=== PATIENT | male | born 1925 | race Caucasian/White ===

== ENCOUNTER 2016-08-03 12:26 | Inpatient (IN) | payer MEDICARE ==
[~2016-08-03] VITALS: Ht 180.3 cm; Wt 45.4 kg
[~2016-08-03 12:26] MED LIST: ACET325T9 PO; AMLO10TA2 PO; ASPI-482 PO; ASPI325T4 PO; ATOR10TA PO; BUME1TAB PO; DILT180C29 PO; FURO-68 PO; GUAI400T27 PO; HYDR-2666 PO; HYDR-2868 PO; IPRA3AMP NEB; LEVO100T5 PO; LISI-334 PO; MAGN2400 PO; METO100T11 PO; NIFE90TA9 PO; POTA20TA12 PO; POTA20TA4 PO; POTA20TA82 PO; PRED-220 PO; SIMV20TA3 PO; [UNRECOGNIZED DRUG - CODE] PO
[2016-08-03] MEDS ORDERED: IV NORMAL SALINE 1000ML BAG 1,000 ML IV ONE (13:15)
--- NOTE | 2016-08-03 13:15 | RAD ---
CT of the head without contrast, 08/03/2016: History: Altered mental status Comparison is made to a study from 09/17/2015. There is moderate cerebral atrophy. There is encephalomalacia in the left temporoparietal region compatible with an old infarct. There are extensive patchy bilateral deep white matter lucencies compatible with chronic ischemic change. The ventricles are within normal limits in size. There is no shift of the midline structures. There is no evidence of acute intracranial hemorrhage or mass effect. There is a small amount of fluid or mucosal thickening posteriorly in the left sphenoid sinus. IMPRESSION: 1. Chronic findings as described above. 2. No acute intracranial abnormality is detected. PQRS Compliance Statement: One or more of the following individualized dose reduction techniques were utilized for this examination: 1. Automated exposure control 2. Adjustment of the mA and/or kV according to patient size 3. Use of iterative reconstruction technique
--- NOTE | 2016-08-03 13:20 | RAD ---
AP portable chest radiograph 08/03/2016 Clinical History: Shortness of breath. History of pleural effusion. 2 AP portable erect digital radiograph of the chest was obtained. Comparison study is dated 02/27/2016. The cardiac silhouette is mildly enlarged. Atherosclerotic calcification of the thoracic aorta is seen. The thoracic aorta is mildly tortuous. There is a small to moderate-sized right pleural effusion. A right perihilar infiltrate is seen. No pneumothorax is noted. There is diffuse osteopenia of the visualized bony structures. Degenerative changes are seen involving the thoracic spine. Impression: Small to moderate sized right pleural effusion with right perihilar infiltrate. I
[2016-08-03] MEDS ORDERED: PIPERACILLIN/TAZOBACTAM 3.375 GM in IV NORMAL SALINE 50ML 50 ML IV ONE (14:00)
[2016-08-03] MEDS ORDERED: ONDANSETRON PF 4 MG/2 ML VIAL. IV PRN (14:00)
--- NOTE | 2016-08-03 14:06 | PHYS DOC ---
Past Medical History Past Medical History: Constipation, CVA, Dementia, High Cholesterol, Hypertension, Hypothyroid, Renal Disease, Other Additional Past Medical Histor: recent sepsis (09/26/15) Past Surgical History: No Surgical History Alcohol Use: None Drug Use: None Adult General Chief Complaint Chief Complaint: ABNORMAL LABS HPI HPI 89-year-old male who presents with 3-4 days of decreased level consciousness and generalized illness as well as failure to thrive. Patient had laboratory workup that showed a elevated serum sodium of 165. Patient is currently unable to answer my questions appropriately and appears very ill. He has paperwork with him that indicates he is a DNR at this time. He denies any specific complaints. He is mildly toxic in appearance but in no acute distress. He is afebrile. Review of Systems Review of Systems Constitutional: Denies fever or chills [] Eyes: Denies change in visual acuity, redness, or eye pain [] HENT: Denies nasal congestion or sore throat [] Respiratory: Denies cough or shortness of breath [] Cardiovascular: No additional information not addressed in HPI [] GI: Denies abdominal pain, nausea, vomiting, bloody stools or diarrhea [] : Denies dysuria or hematuria [] Musculoskeletal: Denies back pain or joint pain [] Integument: Denies rash or skin lesions [] Neurologic: Denies headache, focal weakness or sensory changes [] Endocrine: Denies polyuria or polydipsia [] Current Medications Current Medications Allergies Allergies Allergies Coded Allergies Type Severity Reaction Last Updated Verified No Known Drug Allergies 09/19/15 No Physical Exam Physical Exam Constitutional: Cachetic, no acute distress, mildly toxic appearance. [] HENT: Normocephalic, atraumatic, bilateral external ears normal, oropharynx dry , no oral exudates, nose normal, . [] Eyes: PERRLA, EOMI, conjunctiva normal, no discharge. [] Neck: Normal range of motion, no tenderness, supple, no stridor. [] Cardiovascular:Heart rate regular rhythm, no murmur [] Lungs & Thorax: Diminished on the right, no significant respiratory distress [] Abdomen: Bowel sounds normal, soft, no tenderness, no masses, no pulsatile masses. [] Skin: Warm, dry, no erythema, no rash, poor skin turgor. [] Back: No tenderness, no CVA tenderness. [] Extremities: No tenderness, no cyanosis, no clubbing, ROM intact, no edema. [] Neurologic: Alert and oriented X 1 (person), no focal deficits Current Patient Data Vital Signs EKG EKG EKG as interpreted by me shows an irregular rhythm with a rate of 81 bpm. There are no acute ST findings. There are no obvious signs of ischemia on this EKG. QTc interval slightly prolonged at 505 ms. Radiology/Procedures Radiology/Procedures CT of the head without contrast, 08/03/2016: History: Altered mental status Comparison is made to a study from 09/17/2015. There is moderate cerebral atrophy. There is encephalomalacia in the left temporoparietal region compatible with an old infarct. There are extensive patchy bilateral deep white matter lucencies compatible with chronic ischemic change. The ventricles are within normal limits in size. There is no shift of the midline structures. There is no evidence of acute intracranial hemorrhage or mass effect. There is a small amount of fluid or mucosal thickening posteriorly in the left sphenoid sinus. IMPRESSION: 1. Chronic findings as described above. 2. No acute intracranial abnormality is detected. PQRS Compliance Statement: One or more of the following individualized dose reduction techniques were utilized for this examination: 1. Automated exposure control 2. Adjustment of the mA and/or kV according to patient size 3. Use of iterative reconstruction technique AP portable chest radiograph 08/03/2016 Clinical History: Shortness of breath. History of pleural effusion. 2 AP portable erect digital radiograph of the chest was obtained. Comparison study is dated 02/27/2016. The cardiac silhouette is mildly enlarged. Atherosclerotic calcification of the thoracic aorta is seen. The thoracic aorta is mildly tortuous. There is a small to moderate-sized right pleural effusion. A right perihilar infiltrate is seen. No pneumothorax is noted. There is diffuse osteopenia of the visualized bony structures. Degenerative changes are seen involving the thoracic spine. Impression: Small to moderate sized right pleural effusion with right perihilar infiltrate. Course & Med Decision Making Course & Med Decision Making Pertinent Labs and Imaging studies reviewed. (See chart for details) This 89-year-old male has significant dehydration, failure to thrive and is being applied for an ongoing hypernatremia. He has a large right-sided pleural effusion with perihilar infiltrate for which I will order up antibiotics. Blood cultures and lactate will be obtained. His code status was confirmed with daughter at bedside as DNR. His vital signs have remained normal while in the department. At this time laboratory workup is pending. I discussed the need to admit the patient with the hospitalist, Dr. Guzman, who agreed to accept admission for his ongoing dehydration and failure to thrive. Nephrology consult was also placed. Attempts at antibiotics that are non-nephrotoxic were made. His urinalysis is positive for infection. His serum sodium is confirmed to be elevated at 166. He was admitted without incident. Dragon Disclaimer Dragon Disclaimer This electronic medical record was generated, in whole or in part, using a voice recognition dictation system. Departure Departure Impression: Primary Impression: Hypernatremia Additional Impressions: Severe dehydration Failure to thrive Pleural effusion Disposition: ADMITTED INPATIENT Admitting Physician: Radames Guzman Condition: STABLE Referrals: RADAMES GUZMAN MD (PCP) Problem Qualifiers ADITYA LANG DO Aug 03, 2016 14:06
[2016-08-03 14:30] LABS: BASO # 0.1 x10^3/uL (0.0-0.2); BASO % 1 % (0-3); EOS % 5 % (0-3); HEMATOCRIT 48.7 % (39.0-53.0); HEMOGLOBIN 14.5 g/dL (13.0-17.5); LYMPH # 0.9 x10^3/uL (1.0-4.8); LYMPH % 13 % (24-48); MEAN CORPUSCULAR HEMOGLOBIN 29 pg (25-35); MEAN CORPUSCULAR HGB CONC 30 g/dL (31-37); MEAN CORPUSCULAR VOLUME 96 fL (79-100); MONO % 5 % (0-9); NEUT % 76 % (31-73); PLATELET COUNT 138 x10^3/uL (140-400); RED BLOOD COUNT 5.06 x10^6/uL (4.30-5.70); RED CELL DISTRIBUTION WIDTH 22.4 % (11.5-14.5)
[2016-08-03 14:36] LABS: ALBUMIN 2.3 g/dL (3.4-5.0); ALBUMIN/GLOBULIN RATIO 0.5 (1.0-1.7); CREATININE 2.2 mg/dL (0.7-1.3); GFR 28.3; POTASSIUM 3.9 mmol/L (3.5-5.1); TOTAL BILIRUBIN 1.7 mg/dL (0.2-1.0); TOTAL PROTEIN 7.3 g/dL (6.4-8.2)
[2016-08-03 14:36] LABS: BILIRUBIN,URINE MODERATE (NEG); GLUCOSE,URINE NEGATIVE (NEG); NITRITE,URINE NEGATIVE (NEG); PH,URINE 5.5; PROTEIN,URINE 100 mg/dL (NEG-TRACE)
[2016-08-03 15:00] LABS: BACTERIA,URINE MODERATE /HPF (0-FEW); WBC,URINE TNTC /HPF (0-4); YEAST,URINE PRESENT /HPF
[2016-08-03] MEDS ORDERED: CEFEPIME HCL 2 GM in IV NORMAL SALINE 100ML 100 ML IV ONE (15:00)
[2016-08-03] MEDS: IV NORMAL SALINE 1000ML BAG 1,000 ML IV SCH ×2 (15:56→20:49)
--- NOTE | 2016-08-03 15:56 | ACF ---
Admission Forms Criteria HYPONATREMIA; HYPERNATREMIA; HYPOKALEMIA; HYPERKALEMIA; HYPOCALCEMIA; HYPERCALCEMIA Clinical Indications for Inpatient Care (Place 'X' for any and all applicable criteria): Ongoing inpatient care may be indicated for ANY ONE of the following [G](1)(2)(3 )(5): [ ]I. Hyponatremia with ANY ONE of the following: [ ]a) Sodium less than 130 mEq/L (mmol/L) (new) (6)(22) [ ]b) Sodium less than 135 mEq/L (mmol/L) with ANY ONE of the following: [ ]i) Severe medical etiology requiring inpatient management (eg, heart failure, hypovolemia) [ ]ii) Altered mental status [ ]iii) Seizures [X]II. Hypernatremia with ANY ONE of the following: [X]a) Sodium greater than 155 mEq/L (mmol/L) [ ]b) Sodium greater than 150 mEq/L (mmol/L) with ANY ONE of the following: [ ] i) Altered mental status [ ]ii) Seizures [ ]iii) Severe medical etiology (eg, hypovolemia, diabetes insipidus) [ ]iv) Severe weakness [ ]v) Severe medical etiology (eg, hemolysis, infection, drug overdose) [ ]III. Hypokalemia with ANY ONE of the following: [ ]a) Potassium less than 2.5 mEq/L (mmol/L) despite outpatient and emergency treatment [ ]b) Potassium less than 3.0 mEq/L (mmol/L) with ANY ONE of the following: [ ]i) Weakness [ ]ii) Cardiac abnormality (eg, arrhythmia, conduction disturbance) [ ]iii) Cardiac ischemia [ ]iv) Ileus [ ]v) Ongoing medical cause requiring inpatient management. ( e.g., acute renal wasting, SIADH) [ ]vi) Other severe symptoms [ ] IV. Hyperkalemia with ANY ONE of the following: [ ]a) Potassium greater than 6.5 mEq/L (mmol/L) [ ]b) Potassium greater than 5 mEq/L (mmol/L) with ANY ONE of the following: [ ]i) Severe ECG findings [H] [ ]ii) Acute worsening of renal failure (creatinine greater than 2.5 mg/dL (221 micromoles/L) or significant elevation for age and size) [ ] V. Hypocalcemia with ANY ONE of the following: [ ]a) Calcium less than 7 mg/dL (1.75 mmol/L) despite outpatient and emergency treatment(19) [ ]b) Calcium less than 8 mg/dL (2 mmol/L) with significant symptoms or findings; examples include: [ ]i) Cardiac abnormality (eg, arrhythmia or conduction disturbance) [ ]ii) Altered mental status [ ]iii) Seizures [ ]iv) Breathing difficulty [ ]v) Muscle spasms [ ]. Hypercalcemia with ANY ONE of the following: [ ]a) Calcium greater than 14 mg/dL (3.5 mmol/L) [ ]b) Calcium greater than 12 mg/dL (3 mmol/L) with ANY ONE of the following: [ ]i) Significant dehydration or hypovolemia as indicated by ANY ONE of the following(2): [ ]1. Clinically significant dehydration as indicated by ANY ONE of the following: [ ]A. Acute loss of weight from baseline (5% of body weight in adults, 9% in pediatric patients) [ ]B. Hemodynamic instability [ ]C. Acute renal failure [ ]D. Serum sodium greater than 150 mEq/L (mmol/L) [ ]2) Dehydration that is persistent indicated by ALL of the following: [ ]A. Oral rehydration therapy not tolerated or insufficient to adequately correct dehydration [ ]B. Appropriate intravenous treatment (eg, fluids ) does not readily correct dehydration ie, after 12 to 24 hours of treatment) [ ]ii) Significant symptoms or findings; examples include: [ ]1) Altered mental status [ ]2) Cardiac abnormality (eg, arrhythmia, conduction disturbance) [ ]3) Cardiac abnormality (eg, arrhythmia, conduction disturbance) The original [facility] content created by [facility] has been revised. The portions of the content which have been revised are identified through the use of italic text or in bold, and [facility] has neither reviewed nor approved the modified material. All other unmodified content is copyright [facility] Please see references footnoted in the original [facility] edition 2016 Admission Criteria Met?: Yes SUSHMA FORD Aug 03, 2016 15:56
[2016-08-03 16:40] VITALS: BP 148/104
[2016-08-03] MEDS ORDERED: IPRA3AMP NEB (18:36)
[2016-08-03] MEDS ORDERED: LEVO150T PO (18:37)
[2016-08-03] MEDS ORDERED: NA P133E2 RC (18:37)
[2016-08-03] MEDS ORDERED: DICL100G7 TP (18:38)
[2016-08-03] MEDS ORDERED: ONDA4TAB7 PO (18:38)
[2016-08-03] MEDS ORDERED: ACET160S RC (18:39)
[2016-08-03] MEDS ORDERED: CARV12.5 PO (18:40)
[2016-08-03] MEDS ORDERED: BISA-42 RC (18:40)
[2016-08-03 19:59] VITALS: BP 138/92
[2016-08-03 20:05] LABS: MICROCYTOSIS SLIGHT; PLT ESTIMATE ADEQUATE (ADEQUATE)
[2016-08-04] VITALS (7 sets, daily range): BP systolic 116–138; BP diastolic 72–88
[2016-08-04 03:41] LABS: BASO # 0.1 x10^3/uL (0.0-0.2); BASO % 1 % (0-3); EOS % 3 % (0-3); HEMATOCRIT 42.4 % (39.0-53.0); HEMOGLOBIN 13.1 g/dL (13.0-17.5); LYMPH # 0.6 x10^3/uL (1.0-4.8); LYMPH % 9 % (24-48); MEAN CORPUSCULAR HEMOGLOBIN 29 pg (25-35); MEAN CORPUSCULAR HGB CONC 31 g/dL (31-37); MEAN CORPUSCULAR VOLUME 94 fL (79-100); MONO % 4 % (0-9); NEUT % 83 % (31-73); PLATELET COUNT 120 x10^3/uL (140-400); RED BLOOD COUNT 4.51 x10^6/uL (4.30-5.70); RED CELL DISTRIBUTION WIDTH 21.9 % (11.5-14.5); WHITE BLOOD COUNT 6.3 x10^3/uL (4.0-11.0)
[2016-08-04 03:54] LABS: CALCIUM 8.3 mg/dL (8.5-10.1); CREATININE 2.1 mg/dL (0.7-1.3); GFR 29.9; POTASSIUM 3.5 mmol/L (3.5-5.1)
--- NOTE | 2016-08-04 08:01 | PDOC ---
GENERAL General: vss and afebrile. awakens and non-communicative. Na 165 this am despite ivf's since admit. creatinine down to 2.1. ct head negative and cxr with small to moderate sized right pleural effusion. renal help appreciated. see dictated H&P. Problems: VITAL SIGNS Vital Signs: Vital Signs Date Time Temp Pulse Resp B/P Pulse Ox O2 Delivery O2 Flow Rate FiO2 08/04/16 03:52 97.4 104 18 132/88 Nasal Cannula 4.0 97.4 08/04/16 00:33 95 I & O I & O Intake and Output 08/04/16 07:00 Intake Total 1390 ml Output Total 250 ml Balance 1140 ml Intake Oral 240 ml IV Total 1150 ml Output Urine Total 250 ml ALLERGIES Allergies: Allergies Coded Allergies Type Severity Reaction Last Updated Verified No Known Drug Allergies 09/19/15 No MEDS Medications: Current Medications Medications (Trade) Dose Ordered Sig/Sammy Start Time Stop Time Status Last Admin Dose Admin Cefepime HCl 2 gm/ Sodium Chloride 100 ml @ 200 mls/hr Q24H 08/04/16 15:00 Cefepime HCl/ Sodium Chloride (Maxipime/Iv Sodium Chloride 0.9% 100ml) 100 ml @ 200 mls/hr 1X ONCE 08/03/16 15:00 08/03/16 15:29 DC 08/03/16 14:34 200 MLS/HR Linezolid 300 ml @ 300 mls/hr Q12HR 08/03/16 15:00 08/03/16 20:46 300 MLS/HR Ondansetron HCl 4 mg 4 mg PRN Q8HRS PRN 08/03/16 14:00 08/04/16 13:59 Piperacillin Sod/ Tazobactam Sod 3.375 gm/Sodium Chloride 50 ml @ 100 mls/hr 1X ONCE 08/03/16 14:00 08/03/16 14:29 DC 08/03/16 15:14 100 MLS/HR Sodium Chloride 1,000 ml @ 125 mls/hr Q8H 08/03/16 14:00 08/04/16 13:59 08/03/16 20:49 125 MLS/HR Sodium Chloride (Iv Sodium Chloride 0.9% 1000ml Bag) 1,000 ml @ 1,000 mls/hr 1X ONCE 08/03/16 13:15 08/03/16 14:14 DC 08/03/16 14:14 1,000 MLS/HR LAB Lab: Laboratory Tests Test 08/03/16 14:13 08/03/16 14:28 08/03/16 16:50 08/04/16 03:05 White Blood Count 7.0x10^3/uL (4.0-11.0) 6.3x10^3/uL (4.0-11.0) Red Blood Count 5.06x10^6/uL (4.30-5.70) 4.51x10^6/uL (4.30-5.70) Hemoglobin 14.5g/dL (13.0-17.5) 13.1g/dL (13.0-17.5) Hematocrit 48.7% (39.0-53.0) 42.4% (39.0-53.0) Mean Corpuscular Volume 96fL (79-100) 94fL (79-100) Mean Corpuscular Hemoglobin 29pg (25-35) 29pg (25-35) Mean Corpuscular Hemoglobin Concent 30g/dL (31-37) 31g/dL (31-37) Red Cell Distribution Width 22.4% (11.5-14.5) 21.9% (11.5-14.5) Platelet Count 138x10^3/uL (140-400) 120x10^3/uL (140-400) Neutrophils (%) (Auto) 76% (31-73) 83% (31-73) Lymphocytes (%) (Auto) 13% (24-48) 9% (24-48) Monocytes (%) (Auto) 5% (0-9) 4% (0-9) Eosinophils (%) (Auto) 5% (0-3) 3% (0-3) Basophils (%) (Auto) 1% (0-3) 1% (0-3) Neutrophils # (Auto) 5.4x10^3uL (1.8-7.7) 5.2x10^3uL (1.8-7.7) Lymphocytes # (Auto) 0.9x10^3/uL (1.0-4.8) 0.6x10^3/uL (1.0-4.8) Monocytes # (Auto) 0.3x10^3/uL (0.0-1.1) 0.2x10^3/uL (0.0-1.1) Eosinophils # (Auto) 0.3x10^3/uL (0.0-0.7) 0.2x10^3/uL (0.0-0.7) Basophils # (Auto) 0.1x10^3/uL (0.0-0.2) 0.1x10^3/uL (0.0-0.2) Platelet Estimate Adequate (ADEQUATE) Microcytosis Slight Macrocytosis Slight Sodium Level 166mmol/L (136-145) 165mmol/L (136-145) Potassium Level 3.9mmol/L (3.5-5.1) 3.5mmol/L (3.5-5.1) Chloride Level 126mmol/L (98-107) 127mmol/L (98-107) Carbon Dioxide Level 27mmol/L (21-32) 27mmol/L (21-32) Anion Gap 13 (6-14) 11 (6-14) Blood Urea Nitrogen 44mg/dL (8-26) 42mg/dL (8-26) Creatinine 2.2mg/dL (0.7-1.3) 2.1mg/dL (0.7-1.3) Estimated GFR (Cockcroft-Gault) 28.3 29.9 BUN/Creatinine Ratio 20 (6-20) Glucose Level 66mg/dL (70-99) 106mg/dL (70-99) Lactic Acid Level 1.9mmol/L (0.4-2.0) Calcium Level 9.0mg/dL (8.5-10.1) 8.3mg/dL (8.5-10.1) Total Bilirubin 1.7mg/dL (0.2-1.0) Aspartate Amino Transf (AST/SGOT) 21U/L (15-37) Alanine Aminotransferase (ALT/SGPT) 9U/L (16-63) Alkaline Phosphatase 84U/L (46-116) Troponin I Quantitative < 0.017ng/mL (0.000-0.055) Total Protein 7.3g/dL (6.4-8.2) Albumin 2.3g/dL (3.4-5.0) Albumin/Globulin Ratio 0.5 (1.0-1.7) Urine Collection Type Unknown Urine Color [place] Urine Clarity Turbid Urine pH 5.5 Urine Specific [place] 1.020 Urine Protein 100mg/dL (NEG-TRACE) Urine Glucose (UA) Negativemg/dL (NEG) Urine Ketones (Stick) Tracemg/dL (NEG) Urine Blood Large (NEG) Urine Nitrite Negative (NEG) Urine Bilirubin Moderate (NEG) Urine Urobilinogen Dipstick 1.0mg/dL (0.2 mg/dL) Urine Leukocyte Esterase Large (NEG) Urine RBC 1-2/HPF (0-2) Urine WBC Tntc/HPF (0-4) Urine Squamous Epithelial Cells None/LPF Urine Bacteria Moderate/HPF (0-FEW) Urine Yeast Present/HPF Nasal Screen MRSA (PCR) Positive (Negative) RADAMES GUZMAN MD Aug 04, 2016 08:01
--- NOTE | 2016-08-04 08:06 | EKG ---
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
[2016-08-04] MEDS: IV NORMAL SALINE 1000ML BAG 1,000 ML IV SCH (08:23)
--- NOTE | 2016-08-04 11:57 | PDOC ---
Infectious Disease Note Vital Sign Vital Signs Vital Signs Date Time Temp Pulse Resp B/P Pulse Ox O2 Delivery O2 Flow Rate FiO2 08/04/16 08:00 Nasal Cannula 4.0 08/04/16 07:36 97.3 68 18 128/82 94 97.3 Labs Lab Laboratory Tests Test 08/03/16 14:13 08/03/16 14:28 08/03/16 16:50 08/04/16 03:05 White Blood Count 7.0x10^3/uL (4.0-11.0) 6.3x10^3/uL (4.0-11.0) Red Blood Count 5.06x10^6/uL (4.30-5.70) 4.51x10^6/uL (4.30-5.70) Hemoglobin 14.5g/dL (13.0-17.5) 13.1g/dL (13.0-17.5) Hematocrit 48.7% (39.0-53.0) 42.4% (39.0-53.0) Mean Corpuscular Volume 96fL (79-100) 94fL (79-100) Mean Corpuscular Hemoglobin 29pg (25-35) 29pg (25-35) Mean Corpuscular Hemoglobin Concent 30g/dL (31-37) 31g/dL (31-37) Red Cell Distribution Width 22.4% (11.5-14.5) 21.9% (11.5-14.5) Platelet Count 138x10^3/uL (140-400) 120x10^3/uL (140-400) Neutrophils (%) (Auto) 76% (31-73) 83% (31-73) Lymphocytes (%) (Auto) 13% (24-48) 9% (24-48) Monocytes (%) (Auto) 5% (0-9) 4% (0-9) Eosinophils (%) (Auto) 5% (0-3) 3% (0-3) Basophils (%) (Auto) 1% (0-3) 1% (0-3) Neutrophils # (Auto) 5.4x10^3uL (1.8-7.7) 5.2x10^3uL (1.8-7.7) Lymphocytes # (Auto) 0.9x10^3/uL (1.0-4.8) 0.6x10^3/uL (1.0-4.8) Monocytes # (Auto) 0.3x10^3/uL (0.0-1.1) 0.2x10^3/uL (0.0-1.1) Eosinophils # (Auto) 0.3x10^3/uL (0.0-0.7) 0.2x10^3/uL (0.0-0.7) Basophils # (Auto) 0.1x10^3/uL (0.0-0.2) 0.1x10^3/uL (0.0-0.2) Platelet Estimate Adequate (ADEQUATE) Microcytosis Slight Macrocytosis Slight Sodium Level 166mmol/L (136-145) 165mmol/L (136-145) Potassium Level 3.9mmol/L (3.5-5.1) 3.5mmol/L (3.5-5.1) Chloride Level 126mmol/L (98-107) 127mmol/L (98-107) Carbon Dioxide Level 27mmol/L (21-32) 27mmol/L (21-32) Anion Gap 13 (6-14) 11 (6-14) Blood Urea Nitrogen 44mg/dL (8-26) 42mg/dL (8-26) Creatinine 2.2mg/dL (0.7-1.3) 2.1mg/dL (0.7-1.3) Estimated GFR (Cockcroft-Gault) 28.3 29.9 BUN/Creatinine Ratio 20 (6-20) Glucose Level 66mg/dL (70-99) 106mg/dL (70-99) Lactic Acid Level 1.9mmol/L (0.4-2.0) Calcium Level 9.0mg/dL (8.5-10.1) 8.3mg/dL (8.5-10.1) Total Bilirubin 1.7mg/dL (0.2-1.0) Aspartate Amino Transf (AST/SGOT) 21U/L (15-37) Alanine Aminotransferase (ALT/SGPT) 9U/L (16-63) Alkaline Phosphatase 84U/L (46-116) Troponin I Quantitative < 0.017ng/mL (0.000-0.055) Total Protein 7.3g/dL (6.4-8.2) Albumin 2.3g/dL (3.4-5.0) Albumin/Globulin Ratio 0.5 (1.0-1.7) Urine Collection Type Unknown Urine Color [place] Urine Clarity Turbid Urine pH 5.5 Urine Specific [place] 1.020 Urine Protein 100mg/dL (NEG-TRACE) Urine Glucose (UA) Negativemg/dL (NEG) Urine Ketones (Stick) Tracemg/dL (NEG) Urine Blood Large (NEG) Urine Nitrite Negative (NEG) Urine Bilirubin Moderate (NEG) Urine Urobilinogen Dipstick 1.0mg/dL (0.2 mg/dL) Urine Leukocyte Esterase Large (NEG) Urine RBC 1-2/HPF (0-2) Urine WBC Tntc/HPF (0-4) Urine Squamous Epithelial Cells None/LPF Urine Bacteria Moderate/HPF (0-FEW) Urine Yeast Present/HPF Nasal Screen MRSA (PCR) Positive (Negative) Objective Assessment BC + with G + cocci id pending Fever CRISTIAN Dehydration UTI Plan Plan of Care agree with cefepime and zyvox for now check culture and adjust d/w daughter fluids KELLI HE MD Aug 04, 2016 11:57
[2016-08-04] MEDS ORDERED: IV 1/2 NORMAL SALINE 1,000 ML IV ONE (12:00)
--- NOTE | 2016-08-04 12:04 | PDOC2 ---
CONSULT Date of Consult Date of Consult DATE: 08/04/16 TIME: 11:58 Reason for Consult Reason for Consult: CRISTIAN, CKD AND DEHYDRATION Referring Physician Referring Physician: MEGAN Identification/Chief Complaint Chief Complaint CONFUSION AND WEAKNESS Source Source: Chart review History of Present Illness Reason for Visit: THIS IS AN 89 YR OLD ADMITTED WITH CONFUSION AND FAILURE TO THRIVE. NOT EATING. HIS CR IS 2.1 AND NA IS 135. HE HAS CKD STAGE 3 TO 4 WITH BASELINE CR OF 1.5-2.0 Past Medical History Cardiovascular: AFIB, CHF, HTN, MA, Hyperlipidemia, Pulmonary hypertension, Other Pulmonary: No pertinent hx CENTRAL NERVOUS SYSTEM: CVA, Dementia GI: Constipation Heme/Onc: No pertinent hx Hepatobiliary: No pertinent hx Psych: No pertinent hx Musculoskeletal: No pain Rheumatologic: No pertinent hx Infectious disease: No pertinent hx Renal/: Chronic renal insuff, Hematuria Endocrine: Hypothyroidism Past Surgical History Past Surgical History: Cataract Removal, Other Family History Family History: No Significant, Family History Unknown Social History Social History: Parent ALCOHOL: none Drugs: None Lives: Longterm Current Problem List Problem List Problems Medical Problems: (1) Failure to thrive Status: Acute (2) Hypernatremia Status: Acute (3) Pleural effusion Status: Acute (4) Severe dehydration Status: Acute Current Medications Current Medications Current Medications Sodium Chloride (Iv Sodium Chloride 0.9% 1000ml Bag) 1,000 ml @ 1,000 mls/hr 1X ONCE IV Last administered on 08/03/16 14:14; Start 08/03/16 at 13:15; Stop 08/03/16 at 14:14; Status DC Ondansetron HCl 4 mg 4 mg PRN Q8HRS PRN IV NAUSEA/VOMITING; Start 08/03/16 at 14:00; Stop 08/04/16 at 13:59 Sodium Chloride 1,000 ml @ 125 mls/hr Q8H IV Last administered on 08/04/16 08 :23; Start 08/03/16 at 14:00; Stop 08/04/16 at 13:59 Piperacillin Sod/ Tazobactam Sod 3.375 gm/Sodium Chloride 50 ml @ 100 mls/hr 1X ONCE IV Last administered on 08/03/16 15:14; Start 08/03/16 at 14:00; Stop 08/03/16 at 14:29; Status DC Cefepime HCl 2 gm/ Sodium Chloride 100 ml @ 200 mls/hr Q24H IV ; Start at 15:00 Linezolid 300 ml @ 300 mls/hr Q12HR IV Last administered on 08/04/16 08:23; Start 08/03/16 at 15:00 Cefepime HCl/ Sodium Chloride (Maxipime/Iv Sodium Chloride 0.9% 100ml) 100 ml @ 200 mls/hr 1X ONCE IV Last administered on 08/03/16 14:34; Start 08/03/16 at 15:00; Stop 08/03/16 at 15:29; Status DC Active Scripts Active Reported Coreg (Carvedilol) 12.5 Mg Tablet 1 Tab PO BID Dulcolax (Bisacodyl) 5 Mg Tablet.dr 10 Mg RC PRN DAILY Acetaminophen 160 Mg/5 Ml Solution 650 Mg RC PRN Q4HRS Zofran (Ondansetron Hcl) 4 Mg Tablet 1 Tab PO PRN Q6HRS Voltaren (Diclofenac Sodium) 100 Gm Gel..gram. 1 Gm TP BID Synthroid (Levothyroxine Sodium) 150 Mcg Tablet 1 Tab PO DAILY Fleet Enema (Na Phos,M-B/Na Phos,Di-Ba) 133 Ml Enema 1 Each RC PRN DAILY Duoneb 0.5-3(2.5) Mg/3 Ml (Albuterol/Ipratropium) 3 Ml Ampul.neb 3 Ml NEB PRN QID Potassium Chloride 20 Meq Tablet.er 20 Meq PO DAILY Milk Of Magnesia (Magnesium Hydroxide) 2,400 Mg/10 Ml Oral.susp 2,400 Mg PO PRN DAILY PRN Tylenol (Acetaminophen) 325 Mg Tablet 2 Tab PO PRN Q4HRS Allergies Allergies: Coded Allergies: I S O L A T I O N *CONTACT* (Verified Allergy, Unknown, 08/04/16) mrsa No Known Medication Allergies (Verified Allergy, Unknown, 08/04/16) ROS Review of System UNABLE TO OBTAIN FROM PT Physical Exam General: Cooperative HEENT: Atraumatic, PERRLA, Other (DRY ORAL MUCOSA) Lungs: Normal air movement Heart: Regular rate, Normal S1 Abdomen: Normal bowel sounds, Soft Extremities: No clubbing Skin: No breakdown Neuro: Other (CONFUSED) Psych/Mental Status: Other (CONFUSED) MUSCULOSKELETAL: Other (DIFFUSE MUSCLE ATROPHY) Vitals VITALS Vital Signs Date Time Temp Pulse Resp B/P Pulse Ox O2 Delivery O2 Flow Rate FiO2 08/04/16 08:00 Nasal Cannula 4.0 08/04/16 07:36 97.3 68 18 128/82 94 97.3 Labs Labs Laboratory Tests Test 08/03/16 14:13 08/03/16 14:28 08/03/16 16:50 08/04/16 03:05 White Blood Count 7.0x10^3/uL (4.0-11.0) 6.3x10^3/uL (4.0-11.0) Red Blood Count 5.06x10^6/uL (4.30-5.70) 4.51x10^6/uL (4.30-5.70) Hemoglobin 14.5g/dL (13.0-17.5) 13.1g/dL (13.0-17.5) Hematocrit 48.7% (39.0-53.0) 42.4% (39.0-53.0) Mean Corpuscular Volume 96fL (79-100) 94fL (79-100) Mean Corpuscular Hemoglobin 29pg (25-35) 29pg (25-35) Mean Corpuscular Hemoglobin Concent 30g/dL (31-37) 31g/dL (31-37) Red Cell Distribution Width 22.4% (11.5-14.5) 21.9% (11.5-14.5) Platelet Count 138x10^3/uL (140-400) 120x10^3/uL (140-400) Neutrophils (%) (Auto) 76% (31-73) 83% (31-73) Lymphocytes (%) (Auto) 13% (24-48) 9% (24-48) Monocytes (%) (Auto) 5% (0-9) 4% (0-9) Eosinophils (%) (Auto) 5% (0-3) 3% (0-3) Basophils (%) (Auto) 1% (0-3) 1% (0-3) Neutrophils # (Auto) 5.4x10^3uL (1.8-7.7) 5.2x10^3uL (1.8-7.7) Lymphocytes # (Auto) 0.9x10^3/uL (1.0-4.8) 0.6x10^3/uL (1.0-4.8) Monocytes # (Auto) 0.3x10^3/uL (0.0-1.1) 0.2x10^3/uL (0.0-1.1) Eosinophils # (Auto) 0.3x10^3/uL (0.0-0.7) 0.2x10^3/uL (0.0-0.7) Basophils # (Auto) 0.1x10^3/uL (0.0-0.2) 0.1x10^3/uL (0.0-0.2) Platelet Estimate Adequate (ADEQUATE) Microcytosis Slight Macrocytosis Slight Sodium Level 166mmol/L (136-145) 165mmol/L (136-145) Potassium Level 3.9mmol/L (3.5-5.1) 3.5mmol/L (3.5-5.1) Chloride Level 126mmol/L (98-107) 127mmol/L (98-107) Carbon Dioxide Level 27mmol/L (21-32) 27mmol/L (21-32) Anion Gap 13 (6-14) 11 (6-14) Blood Urea Nitrogen 44mg/dL (8-26) 42mg/dL (8-26) Creatinine 2.2mg/dL (0.7-1.3) 2.1mg/dL (0.7-1.3) Estimated GFR (Cockcroft-Gault) 28.3 29.9 BUN/Creatinine Ratio 20 (6-20) Glucose Level 66mg/dL (70-99) 106mg/dL (70-99) Lactic Acid Level 1.9mmol/L (0.4-2.0) Calcium Level 9.0mg/dL (8.5-10.1) 8.3mg/dL (8.5-10.1) Total Bilirubin 1.7mg/dL (0.2-1.0) Aspartate Amino Transf (AST/SGOT) 21U/L (15-37) Alanine Aminotransferase (ALT/SGPT) 9U/L (16-63) Alkaline Phosphatase 84U/L (46-116) Troponin I Quantitative < 0.017ng/mL (0.000-0.055) Total Protein 7.3g/dL (6.4-8.2) Albumin 2.3g/dL (3.4-5.0) Albumin/Globulin Ratio 0.5 (1.0-1.7) Urine Collection Type Unknown Urine Color Roula Urine Clarity Turbid Urine pH 5.5 Urine Specific [place] 1.020 Urine Protein 100mg/dL (NEG-TRACE) Urine Glucose (UA) Negativemg/dL (NEG) Urine Ketones (Stick) Tracemg/dL (NEG) Urine Blood Large (NEG) Urine Nitrite Negative (NEG) Urine Bilirubin Moderate (NEG) Urine Urobilinogen Dipstick 1.0mg/dL (0.2 mg/dL) Urine Leukocyte Esterase Large (NEG) Urine RBC 1-2/HPF (0-2) Urine WBC Tntc/HPF (0-4) Urine Squamous Epithelial Cells None/LPF Urine Bacteria Moderate/HPF (0-FEW) Urine Yeast Present/HPF Nasal Screen MRSA (PCR) Positive (Negative) Laboratory Tests Test 08/03/16 14:13 08/03/16 14:28 08/03/16 16:50 08/04/16 03:05 White Blood Count 7.0x10^3/uL (4.0-11.0) 6.3x10^3/uL (4.0-11.0) Red Blood Count 5.06x10^6/uL (4.30-5.70) 4.51x10^6/uL (4.30-5.70) Hemoglobin 14.5g/dL (13.0-17.5) 13.1g/dL (13.0-17.5) Hematocrit 48.7% (39.0-53.0) 42.4% (39.0-53.0) Mean Corpuscular Volume 96fL (79-100) 94fL (79-100) Mean Corpuscular Hemoglobin 29pg (25-35) 29pg (25-35) Mean Corpuscular Hemoglobin Concent 30g/dL (31-37) 31g/dL (31-37) Red Cell Distribution Width 22.4% (11.5-14.5) 21.9% (11.5-14.5) Platelet Count 138x10^3/uL (140-400) 120x10^3/uL (140-400) Neutrophils (%) (Auto) 76% (31-73) 83% (31-73) Lymphocytes (%) (Auto) 13% (24-48) 9% (24-48) Monocytes (%) (Auto) 5% (0-9) 4% (0-9) Eosinophils (%) (Auto) 5% (0-3) 3% (0-3) Basophils (%) (Auto) 1% (0-3) 1% (0-3) Neutrophils # (Auto) 5.4x10^3uL (1.8-7.7) 5.2x10^3uL (1.8-7.7) Lymphocytes # (Auto) 0.9x10^3/uL (1.0-4.8) 0.6x10^3/uL (1.0-4.8) Monocytes # (Auto) 0.3x10^3/uL (0.0-1.1) 0.2x10^3/uL (0.0-1.1) Eosinophils # (Auto) 0.3x10^3/uL (0.0-0.7) 0.2x10^3/uL (0.0-0.7) Basophils # (Auto) 0.1x10^3/uL (0.0-0.2) 0.1x10^3/uL (0.0-0.2) Platelet Estimate Adequate (ADEQUATE) Microcytosis Slight Macrocytosis Slight Sodium Level 166mmol/L (136-145) 165mmol/L (136-145) Potassium Level 3.9mmol/L (3.5-5.1) 3.5mmol/L (3.5-5.1) Chloride Level 126mmol/L (98-107) 127mmol/L (98-107) Carbon Dioxide Level 27mmol/L (21-32) 27mmol/L (21-32) Anion Gap 13 (6-14) 11 (6-14) Blood Urea Nitrogen 44mg/dL (8-26) 42mg/dL (8-26) Creatinine 2.2mg/dL (0.7-1.3) 2.1mg/dL (0.7-1.3) Estimated GFR (Cockcroft-Gault) 28.3 29.9 BUN/Creatinine Ratio 20 (6-20) Glucose Level 66mg/dL (70-99) 106mg/dL (70-99) Lactic Acid Level 1.9mmol/L (0.4-2.0) Calcium Level 9.0mg/dL (8.5-10.1) 8.3mg/dL (8.5-10.1) Total Bilirubin 1.7mg/dL (0.2-1.0) Aspartate Amino Transf (AST/SGOT) 21U/L (15-37) Alanine Aminotransferase (ALT/SGPT) 9U/L (16-63) Alkaline Phosphatase 84U/L (46-116) Troponin I Quantitative < 0.017ng/mL (0.000-0.055) Total Protein 7.3g/dL (6.4-8.2) Albumin 2.3g/dL (3.4-5.0) Albumin/Globulin Ratio 0.5 (1.0-1.7) Urine Collection Type Unknown Urine Color Roula Urine Clarity Turbid Urine pH 5.5 Urine Specific [place] 1.020 Urine Protein 100mg/dL (NEG-TRACE) Urine Glucose (UA) Negativemg/dL (NEG) Urine Ketones (Stick) Tracemg/dL (NEG) Urine Blood Large (NEG) Urine Nitrite Negative (NEG) Urine Bilirubin Moderate (NEG) Urine Urobilinogen Dipstick 1.0mg/dL (0.2 mg/dL) Urine Leukocyte Esterase Large (NEG) Urine RBC 1-2/HPF (0-2) Urine WBC Tntc/HPF (0-4) Urine Squamous Epithelial Cells None/LPF Urine Bacteria Moderate/HPF (0-FEW) Urine Yeast Present/HPF Nasal Screen MRSA (PCR) Positive (Negative) Assessment/Plan Assessment/Plan IMP DEHYDRATION CRISTIAN WITH CR OF 2.1 CKD STAGE 3 WITH CR OF 1.5-2.0 URINARY TRACT INFECTIONI HYPERNATREMIA PLAN ANTIBIOTICS VOLUME REPLETE LABS IN SHARAN VEE MD Aug 04, 2016 12:04
[2016-08-04] MEDS: CEFEPIME HCL 2 GM in IV NORMAL SALINE 100ML 100 ML IV SCH (15:39)
--- NOTE | 2016-08-04 22:24 | CONS ---
DATE OF CONSULTATION: 08/04/2016 REQUESTING PHYSICIAN: Dr. Jaguar Chery REASON FOR CONSULTATION: Blood culture positive. HISTORY OF PRESENT ILLNESS: This is an 89-year-old gentleman who was transferred from nursing facility. The patient evidently had change in the level of consciousness, generalized weakness, failure to thrive, not eating. The patient was found to have a fever, blood culture positive now, acute kidney injury, dehydration, urinary tract infection, pleural effusion, which may have been chronic. The patient has been put on cefepime and Zyvox and consult has been requested. The patient is alert, awake, able to communicate. The patient says nothing is bothering him. No pain, no shortness of breath, no complaints, and he ate some according to the daughter at the bedside. PAST MEDICAL HISTORY: Positive for CVA, dementia, hyperlipidemia, hypertension, hypothyroidism and renal insufficiency. SOCIAL HISTORY: Negative for smoking, alcohol use or drug use. The patient currently is in a snf since June. REVIEW OF SYSTEMS: As per HPI, all other systems reviewed are negative. CURRENT MEDICATIONS: Reviewed. PHYSICAL EXAMINATION: GENERAL: Awake gentleman, not in distress. VITAL SIGNS: Stable. Afebrile. The patient has had temperature down to 94.4. HEENT: Both pupils are round and reacting. No conjunctival lesion, no lesion in the mouth. NECK: Supple, no JVP, no lymphadenopathy. LUNGS: Clear. HEART: S1, S2 regular. ABDOMEN: Benign. EXTREMITIES: No edema or cyanosis. The patient is thin, cachectic with no muscle mass left. Does move all the extremities although very weak and debilitated that he avoids doing anything. LABORATORY DATA: White count is 6.3, platelets are 120,000. Electrolytes are unremarkable except sodium is 165, BUN 42, creatinine 2.1. Lactic acid 1.9. MRSA screen positive. Urinalysis showed too numerous to count wbc's. Blood culture is positive, 2/2 gram-positive cocci in clusters. Chest x-ray showed bilateral pleural effusion and maybe right perihilar infiltrate. CT of the head was unremarkable for acute changes. IMPRESSION: 1. Blood culture positive, Gram-positive cocci, identification pending. If it is Staph epi, may be even contaminant, but I will wait and see. 2. Dehydration with hypernatremia. 3. Acute renal failure, may have been acute on chronic. 4. Debility and failure to thrive. 5. History of cerebrovascular accident. RECOMMENDATIONS: I would continue with cefepime and Zyvox for the time being, supportive care, hydration, PT, OT and once identification of the organism is known, we will have further recommendation. Discussion with daughter done at the bedside. Thank you very much, Dr. Noble for giving me the opportunity to participate in this patient's care. KELLI HE MD DR: ABDIRASHID/ashley JOB#: [id number] / [id number]
[2016-08-05 02:31] VITALS: BP 130/80
[2016-08-05 05:28] LABS: GFR 31.6
[2016-08-05 05:31] LABS: POTASSIUM 2.6 mmol/L (3.5-5.1)
[2016-08-05 07:05] VITALS: BP 128/85
[2016-08-05] MEDS: POTASSIUM CHLORIDE 10MEQ 100 ML IV SCH ×4 (09:05→18:37)
--- NOTE | 2016-08-05 09:53 | PDOC ---
Infectious Disease Note Subjective Subjective pt feeling ok, mumbles few words ROS ROS no n/v/d/pain Vital Sign Vital Signs Vital Signs Date Time Temp Pulse Resp B/P Pulse Ox O2 Delivery O2 Flow Rate FiO2 08/05/16 08:00 Nasal Cannula 4.0 08/05/16 07:05 97.7 105 16 128/85 92 97.7 Physical Exam PHYSICAL EXAM GENERAL: NAD, Alert HEENT: PERRL, OC/OP NECK: Supple, no JVD, no LN LUNGS: Clear HEART: S1S2, no gallop, no murmur ABD: Soft, NT, no organomegaly, no rebound EXT: No edema, no cyanosis RADIOGRAPHER ANGIOGRAM: Alert, mumbles words SKIN: No rash IV: ok Labs Lab Laboratory Tests Test 08/04/16 20:35 08/05/16 04:25 Glucose (Fingerstick) 109mg/dL (70-99) Sodium Level 164mmol/L (136-145) Potassium Level 2.6mmol/L (3.5-5.1) Chloride Level 128mmol/L (98-107) Carbon Dioxide Level 25mmol/L (21-32) Anion Gap 11 (6-14) Blood Urea Nitrogen 37mg/dL (8-26) Creatinine 2.0mg/dL (0.7-1.3) Estimated GFR (Cockcroft-Gault) 31.6 Glucose Level 81mg/dL (70-99) Calcium Level 8.0mg/dL (8.5-10.1) Objective Assessment BC + with G + cocci id pending Fever CRISTIAN Dehydration UTI Plan Plan of Care agree with cefepime and zyvox for now check culture and adjust fluids,, need more free water KELLI HE MD Aug 05, 2016 09:53
[2016-08-05 10:45] VITALS: BP 125/80
[2016-08-05] MEDS: IV DEXTROSE 5 %-0.45 % NACL 1,000 ML IV SCH ×2 (11:02→22:17)
--- NOTE | 2016-08-05 12:00 | PDOC ---
GENERAL General: vss and afebrile. awakens and shakes head no to problems. K+ 2.6 this am and replacement ordered. Na 164 this am. Creatinine 2.0. Blood cultures positive for staph with ?source. wbc is normal. chest clear and heart regular. critically ill. help consultants appreciated. Problems: VITAL SIGNS Vital Signs: Vital Signs Date Time Temp Pulse Resp B/P Pulse Ox O2 Delivery O2 Flow Rate FiO2 08/05/16 10:45 97.8 62 18 125/80 92 Nasal Cannula 97.8 08/05/16 08:00 4.0 I & O I & O Intake and Output 08/05/16 07:00 Intake Total 420 ml Output Total 770 ml Balance -350 ml Intake Oral 420 ml Output Urine Total 770 ml # Voids 1 ALLERGIES Allergies: Allergies Coded Allergies Type Severity Reaction Last Updated Verified I S O L A T I O N *CONTACT* Allergy Unknown 08/04/16 Yes No Known Medication Allergies Allergy Unknown 08/04/16 Yes MEDS Medications: Current Medications Medications (Trade) Dose Ordered Sig/Sammy Start Time Stop Time Status Last Admin Dose Admin Cefepime HCl 2 gm/ Sodium Chloride 100 ml @ 200 mls/hr 1X ONCE 08/03/16 15:00 08/03/16 15:29 DC 08/03/16 14:34 200 MLS/HR Dextrose/Sodium Chloride (Iv D5% - 1/2 NS) 1,000 ml @ 125 mls/hr Q8H 08/05/16 10:00 08/05/16 11:02 125 MLS/HR Linezolid 300 ml @ 300 mls/hr Q12HR 08/03/16 15:00 08/05/16 11:01 300 MLS/HR Ondansetron HCl 4 mg 4 mg PRN Q8HRS PRN 08/03/16 14:00 08/04/16 13:59 DC Piperacillin Sod/ Tazobactam Sod 3.375 gm/Sodium Chloride 50 ml @ 100 mls/hr 1X ONCE 08/03/16 14:00 08/03/16 14:29 DC 08/03/16 15:14 100 MLS/HR Potassium Chloride 100 ml @ 100 mls/hr Q1H 08/05/16 08:00 08/05/16 11:59 08/05/16 11:00 100 MLS/HR Sodium Chloride 1,000 ml @ 125 mls/hr 1X ONCE 08/04/16 12:00 08/04/16 19:59 DC 08/04/16 13:04 125 MLS/HR Sodium Chloride (Iv Sodium Chloride 0.9% 1000ml Bag) 1,000 ml @ 1,000 mls/hr 1X ONCE 08/03/16 13:15 08/03/16 14:14 DC 08/03/16 14:14 1,000 MLS/HR LAB Lab: Laboratory Tests Test 08/04/16 20:35 08/05/16 04:25 Glucose (Fingerstick) 109mg/dL (70-99) Sodium Level 164mmol/L (136-145) Potassium Level 2.6mmol/L (3.5-5.1) Chloride Level 128mmol/L (98-107) Carbon Dioxide Level 25mmol/L (21-32) Anion Gap 11 (6-14) Blood Urea Nitrogen 37mg/dL (8-26) Creatinine 2.0mg/dL (0.7-1.3) Estimated GFR (Cockcroft-Gault) 31.6 Glucose Level 81mg/dL (70-99) Calcium Level 8.0mg/dL (8.5-10.1) Nutrition Consultation Dietary Evaluation: Recommendations by RD: Increase Calorie Intake, Protein supplementation Comments: boost pudding and magic cup w/meals Expected Outcomes/Goals: to meet > 75% est nutr needs Malnutrition Findings: Food and Nutrition Intake (Mod: <75% est energy req 7days Body Fat Depletion (Non Severe: Mild Depletion Weight Status: Underweight RADAMES GUZMAN MD Aug 05, 2016 12:00
[2016-08-05] MEDS ORDERED: AA 3%/ELECTROLYTE-TPN SOLN/GLY 1,000 ML IV SCH (12:45)
--- NOTE | 2016-08-05 12:45 | PDOC ---
Renal-Progress Notes Subjective Notes Notes NONE History of Present Illness Hx of present illness NO CHANGE Vitals Vitals Vital Signs Date Time Temp Pulse Resp B/P Pulse Ox O2 Delivery O2 Flow Rate FiO2 08/05/16 10:45 97.8 62 18 125/80 92 Nasal Cannula 97.8 08/05/16 08:00 4.0 Weight Weight [ ] I.O. Intake and Output Intake and Output 08/05/16 07:00 Intake Total 420 ml Output Total 770 ml Balance -350 ml Intake Oral 420 ml Output Urine Total 770 ml # Voids 1 Labs Labs Laboratory Tests Test 08/04/16 20:35 08/05/16 04:25 Glucose (Fingerstick) 109mg/dL (70-99) Sodium Level 164mmol/L (136-145) Potassium Level 2.6mmol/L (3.5-5.1) Chloride Level 128mmol/L (98-107) Carbon Dioxide Level 25mmol/L (21-32) Anion Gap 11 (6-14) Blood Urea Nitrogen 37mg/dL (8-26) Creatinine 2.0mg/dL (0.7-1.3) Estimated GFR (Cockcroft-Gault) 31.6 Glucose Level 81mg/dL (70-99) Calcium Level 8.0mg/dL (8.5-10.1) Micro Micro Microbiology 08/03/16 Blood Culture - Preliminary, Resulted 08/03/16 Blood Culture Result 1 (MYLENE) - Preliminary, Resulted Review of Systems Constitutional: yes: no symptom reported Physical Exam General Appearance: no apparent distress Skin: warm Respiratory: decreased breath sounds Heart: S1S2, RRR Abdomen: soft, bowel sounds present Extremities: pulses present Musculoskeletal: No pain Assessment Assessment IMP DEHYDRATION HYPERNATREMIA HYPOKALEMIA UTI PLAN ANTIBIOTICS PPN IVF'S REPLACE K WILL FOLLOW SHARAN VEE MD Aug 05, 2016 12:45
[2016-08-05 14:40] VITALS: BP 137/78
[2016-08-05] MEDS ORDERED: ALBUTEROL SULFATE 2.5 MG/3 ML NEBU. NEB PRN (15:00)
[2016-08-05 15:42] LABS: HCO3 ABG 22 mmol/L (21-28); PCO2 ABG 41 mmHg (35-46); PH ABG 7.36 (7.35-7.45); PO2 ABG 131 mmHg (65-108); SAT O2 ABG 98 % (92-99)
[2016-08-05] MEDS: CEFEPIME HCL 2 GM in IV NORMAL SALINE 100ML 100 ML IV SCH (16:55)
--- NOTE | 2016-08-05 17:01 | RAD ---
Portable chest, 08/05/2016: History: Hypoxia Comparison is made to a study from 08/03/2016. There are moderate bibasilar opacities suggesting pleural fluid and underlying infiltrate. The findings have worsened on the left. The cardiac margins are partially obscured by the basilar opacities. There is calcific plaquing of the aorta. The underlying pulmonary vascularity is prominent. The findings suggest congestive heart failure, although a component of pneumonia cannot be excluded. IMPRESSION: 1. Ongoing moderate sized right pleural effusion with moderate underlying atelectasis/infiltrate. 2. Interval development of moderate left basilar opacities compatible with pleural fluid and infiltrate.
[2016-08-05] MEDS ORDERED: FUROSEMIDE 40 MG/4 ML VIAL. IVP ONE (19:00)
[2016-08-05 19:45] VITALS: BP 110/64
[2016-08-05 23:23] VITALS: BP 116/89
[2016-08-06] MEDS: IV DEXTROSE 5 %-0.45 % NACL 1,000 ML IV SCH ×2 (02:11→22:23)
[2016-08-06 02:13] LABS: ALBUMIN 1.7 g/dL (3.4-5.0); ALBUMIN/GLOBULIN RATIO 0.4 (1.0-1.7); CALCIUM 8.2 mg/dL (8.5-10.1); CREATININE 2.1 mg/dL (0.7-1.3); GFR 29.9; TOTAL BILIRUBIN 0.9 mg/dL (0.2-1.0); TOTAL PROTEIN 5.9 g/dL (6.4-8.2)
[2016-08-06] MEDS: POTASSIUM CHLORIDE 10MEQ 100 ML IV SCH ×4 (02:34→14:15)
[2016-08-06 03:14] VITALS: BP 119/85
[2016-08-06 07:00] VITALS: BP 125/82
--- NOTE | 2016-08-06 07:17 | RAD ---
Portable chest, 08/05/2016, 10:18 PM: History: Check PICC placement Comparison is made to the study of earlier the same day at 3:14 PM. The patient is rotated to the right. A right PICC has been inserted extending to the level of the atriocaval junction. The heart is mildly enlarged. There is ongoing bilateral pleural fluid and pulmonary infiltrates, right greater than left, unchanged since earlier in the day. No new cardiopulmonary abnormality is detected. IMPRESSION: 1. Interval insertion of a right PICC in satisfactory position. 2. No other significant change since earlier in the day.
--- NOTE | 2016-08-06 08:27 | PDOC ---
GENERAL General: vss and afebrile. much more awake and alert today and denies complaints. Na down to 160 with K+ at 3.0 with ongoing replacement. creatinine 2.1. chest decreased breath sounds bilaterally with increased left effusion likely chf though positive blood cultures for staph. Urine growing out yeast and will defer treatment of same to ID. hypoxic yesterday but likely machine error as pO2 on abg 131 while sats 80% peripherally. Problems: VITAL SIGNS Vital Signs: Vital Signs Date Time Temp Pulse Resp B/P Pulse Ox O2 Delivery O2 Flow Rate FiO2 08/06/16 07:00 97.9 44 16 125/82 95 97.9 08/06/16 03:14 Room Air 08/05/16 20:00 4.0 I & O I & O Intake and Output 08/06/16 06:59 Intake Total 0 ml Balance 0 ml Intake Oral 0 ml # Voids 1 ALLERGIES Allergies: Allergies Coded Allergies Type Severity Reaction Last Updated Verified I S O L A T I O N *CONTACT* Allergy Unknown 08/04/16 Yes No Known Medication Allergies Allergy Unknown 08/04/16 Yes MEDS Medications: Current Medications Medications (Trade) Dose Ordered Sig/Sammy Start Time Stop Time Status Last Admin Dose Admin Albuterol Sulfate (Ventolin Neb Soln) 2.5 mg PRN Q4HRS PRN 08/05/16 15:00 Amino Acids/ Glycerin/ Electrolytes (Procalamine) 1,000 ml @ 80 mls/hr [id number] 08/05/16 12:45 08/05/16 19:00 DC Cefepime HCl 2 gm/ Sodium Chloride 100 ml @ 200 mls/hr 1X ONCE 08/03/16 15:00 08/03/16 15:29 DC 08/03/16 14:34 200 MLS/HR Dextrose/Sodium Chloride 1,000 ml @ 50 mls/hr Q20H 08/05/16 10:00 08/06/16 02:11 50 MLS/HR Furosemide (Lasix) 40 mg 1X ONCE 08/05/16 19:00 08/05/16 19:03 DC 08/05/16 20:48 40 MG Linezolid 300 ml @ 300 mls/hr Q12HR 08/03/16 15:00 08/05/16 20:54 300 MLS/HR Ondansetron HCl 4 mg 4 mg PRN Q8HRS PRN 08/03/16 14:00 08/04/16 13:59 DC Piperacillin Sod/ Tazobactam Sod 3.375 gm/Sodium Chloride 50 ml @ 100 mls/hr 1X ONCE 08/03/16 14:00 08/03/16 14:29 DC 08/03/16 15:14 100 MLS/HR Potassium Chloride 100 ml @ 100 mls/hr Q1H 08/05/16 13:00 08/05/16 14:59 DC 08/06/16 03:49 100 MLS/HR Sodium Chloride 1,000 ml @ 125 mls/hr 1X ONCE 08/04/16 12:00 08/04/16 19:59 DC 08/04/16 13:04 125 MLS/HR Sodium Chloride (Iv Sodium Chloride 0.9% 1000ml Bag) 1,000 ml @ 1,000 mls/hr 1X ONCE 08/03/16 13:15 08/03/16 14:14 DC 08/03/16 14:14 1,000 MLS/HR LAB Lab: Laboratory Tests Test 08/05/16 15:40 08/06/16 01:45 O2 Saturation 98% (92-99) Arterial Blood pH 7.36 (7.35-7.45) Arterial Blood pCO2 at Patient Temp 41mmHg (35-46) Arterial Blood pO2 at Patient Temp 131mmHg (65-108) Arterial Blood HCO3 22mmol/L (21-28) Arterial Blood Base Excess -3mmol/L (-3-3) FiO2 36.0 Sodium Level 160mmol/L (136-145) Potassium Level 3.0mmol/L (3.5-5.1) Chloride Level 124mmol/L (98-107) Carbon Dioxide Level 25mmol/L (21-32) Anion Gap 11 (6-14) Blood Urea Nitrogen 35mg/dL (8-26) Creatinine 2.1mg/dL (0.7-1.3) Estimated GFR (Cockcroft-Gault) 29.9 BUN/Creatinine Ratio 17 (6-20) Glucose Level 150mg/dL (70-99) Calcium Level 8.2mg/dL (8.5-10.1) Total Bilirubin 0.9mg/dL (0.2-1.0) Aspartate Amino Transf (AST/SGOT) 18U/L (15-37) Alanine Aminotransferase (ALT/SGPT) 10U/L (16-63) Alkaline Phosphatase 73U/L (46-116) Total Protein 5.9g/dL (6.4-8.2) Albumin 1.7g/dL (3.4-5.0) Albumin/Globulin Ratio 0.4 (1.0-1.7) Nutrition Consultation Dietary Evaluation: Recommendations by RD: Increase Calorie Intake, Protein supplementation Comments: boost pudding and magic cup w/meals Expected Outcomes/Goals: to meet > 75% est nutr needs Malnutrition Findings: Food and Nutrition Intake (Mod: <75% est energy req 7days Body Fat Depletion (Non Severe: Mild Depletion Weight Status: Underweight RADAMES GUZMAN MD Aug 06, 2016 08:27
[2016-08-06 10:42] LABS: CALCIUM 7.9 mg/dL (8.5-10.1); GFR 31.6
[2016-08-06 10:47] LABS: POTASSIUM 2.9 mmol/L (3.5-5.1)
[2016-08-06 10:53] VITALS: BP 131/90
--- NOTE | 2016-08-06 10:56 | PDOC ---
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: unresponsive SKIN: No rash IV: ok Labs Lab Laboratory Tests Test 08/05/16 15:40 08/06/16 01:45 08/06/16 10:11 O2 Saturation 98% (92-99) Arterial Blood pH 7.36 (7.35-7.45) Arterial Blood pCO2 at Patient Temp 41mmHg (35-46) Arterial Blood pO2 at Patient Temp 131mmHg (65-108) Arterial Blood HCO3 22mmol/L (21-28) Arterial Blood Base Excess -3mmol/L (-3-3) FiO2 36.0 Sodium Level 160mmol/L (136-145) 157mmol/L (136-145) Potassium Level 3.0mmol/L (3.5-5.1) 2.9mmol/L (3.5-5.1) Chloride Level 124mmol/L (98-107) 121mmol/L (98-107) Carbon Dioxide Level 25mmol/L (21-32) 25mmol/L (21-32) Anion Gap 11 (6-14) 11 (6-14) Blood Urea Nitrogen 35mg/dL (8-26) 33mg/dL (8-26) Creatinine 2.1mg/dL (0.7-1.3) 2.0mg/dL (0.7-1.3) Estimated GFR (Cockcroft-Gault) 29.9 31.6 BUN/Creatinine Ratio 17 (6-20) Glucose Level 150mg/dL (70-99) 157mg/dL (70-99) Calcium Level 8.2mg/dL (8.5-10.1) 7.9mg/dL (8.5-10.1) Total Bilirubin 0.9mg/dL (0.2-1.0) Aspartate Amino Transf (AST/SGOT) 18U/L (15-37) Alanine Aminotransferase (ALT/SGPT) 10U/L (16-63) Alkaline Phosphatase 73U/L (46-116) Total Protein 5.9g/dL (6.4-8.2) Albumin 1.7g/dL (3.4-5.0) Albumin/Globulin Ratio 0.4 (1.0-1.7) Micro BC MSSA Objective Assessment BC + MSSA Fever CRISTIAN Dehydration UTI Plan Plan of Care cefazolin supportive care KELLI HE MD Aug 06, 2016 10:56
--- NOTE | 2016-08-06 11:39 | PDOC ---
Renal-Progress Notes Subjective Notes Notes MOANING History of Present Illness Hx of present illness NOTHING NEW Vitals Vitals Vital Signs Date Time Temp Pulse Resp B/P Pulse Ox O2 Delivery O2 Flow Rate FiO2 08/06/16 10:53 97.9 63 16 131/90 95 Room Air 97.9 08/06/16 08:00 4.0 Weight Weight [ ] I.O. Intake and Output Intake and Output 08/06/16 07:00 Intake Total 0 ml Balance 0 ml Intake Oral 0 ml # Voids 1 Labs Labs Laboratory Tests Test 08/05/16 15:40 08/06/16 01:45 08/06/16 10:11 O2 Saturation 98% (92-99) Arterial Blood pH 7.36 (7.35-7.45) Arterial Blood pCO2 at Patient Temp 41mmHg (35-46) Arterial Blood pO2 at Patient Temp 131mmHg (65-108) Arterial Blood HCO3 22mmol/L (21-28) Arterial Blood Base Excess -3mmol/L (-3-3) FiO2 36.0 Sodium Level 160mmol/L (136-145) 157mmol/L (136-145) Potassium Level 3.0mmol/L (3.5-5.1) 2.9mmol/L (3.5-5.1) Chloride Level 124mmol/L (98-107) 121mmol/L (98-107) Carbon Dioxide Level 25mmol/L (21-32) 25mmol/L (21-32) Anion Gap 11 (6-14) 11 (6-14) Blood Urea Nitrogen 35mg/dL (8-26) 33mg/dL (8-26) Creatinine 2.1mg/dL (0.7-1.3) 2.0mg/dL (0.7-1.3) Estimated GFR (Cockcroft-Gault) 29.9 31.6 BUN/Creatinine Ratio 17 (6-20) Glucose Level 150mg/dL (70-99) 157mg/dL (70-99) Calcium Level 8.2mg/dL (8.5-10.1) 7.9mg/dL (8.5-10.1) Magnesium Level 1.8mg/dL (1.8-2.4) Total Bilirubin 0.9mg/dL (0.2-1.0) Aspartate Amino Transf (AST/SGOT) 18U/L (15-37) Alanine Aminotransferase (ALT/SGPT) 10U/L (16-63) Alkaline Phosphatase 73U/L (46-116) Total Protein 5.9g/dL (6.4-8.2) Albumin 1.7g/dL (3.4-5.0) Albumin/Globulin Ratio 0.4 (1.0-1.7) Micro Micro Microbiology 08/03/16 Blood Culture - Final, Complete 08/03/16 Blood Culture Result 1 (MYLENE) - Final, Complete 08/03/16 Antimicrobic Susceptibility - Final, Complete 08/03/16 Urine Culture - Final, Complete 08/03/16 Urine Culture Result 1 (MYLENE) - Final, Complete Review of Systems Constitutional: yes: no symptom reported Physical Exam General Appearance: no apparent distress Skin: warm Respiratory: decreased breath sounds Heart: S1S2, RRR Abdomen: soft, bowel sounds present Extremities: pulses present Musculoskeletal: No pain Assessment Assessment IMP DEHYDRATION HYPERNATREMIA HYPOKALEMIA UTI CRISTIAN - BETTER CKD STAGE 3 DEMENTIA PLAN ANTIBIOTICS PPN REPLACE K WILL FOLLOW SHARAN VEE MD Aug 06, 2016 11:39
[2016-08-06] MEDS: AA 3%/ELECTROLYTE-TPN SOLN/GLY 1,000 ML IV SCH (13:10)
[2016-08-06 15:00] VITALS: BP 136/95
[2016-08-06 19:00] VITALS: BP 132/86
[2016-08-06 23:44] VITALS: BP 91/37
[2016-08-07] VITALS (7 sets, daily range): BP systolic 123–160; BP diastolic 79–106
[2016-08-07] MEDS: AA 3%/ELECTROLYTE-TPN SOLN/GLY 1,000 ML IV SCH ×2 (01:46→13:30)
[2016-08-07 06:23] LABS: BASO # 0.1 x10^3/uL (0.0-0.2); BASO % 1 % (0-3); EOS % 4 % (0-3); HEMOGLOBIN 11.7 g/dL (13.0-17.5); LYMPH # 0.6 x10^3/uL (1.0-4.8); LYMPH % 9 % (24-48); MEAN CORPUSCULAR HEMOGLOBIN 29 pg (25-35); MEAN CORPUSCULAR HGB CONC 32 g/dL (31-37); MEAN CORPUSCULAR VOLUME 92 fL (79-100); MONO % 5 % (0-9); NEUT % 81 % (31-73); PLATELET COUNT 105 x10^3/uL (140-400); RED BLOOD COUNT 4.02 x10^6/uL (4.30-5.70); WHITE BLOOD COUNT 6.9 x10^3/uL (4.0-11.0)
[2016-08-07 06:37] LABS: CALCIUM 7.9 mg/dL (8.5-10.1); CREATININE 1.8 mg/dL (0.7-1.3); GFR 35.7
--- NOTE | 2016-08-07 10:18 | PDOC ---
Provider Note Provider Note afeb, bp and output up, creat and Na+ trending down w/ procal- on ancef for sa, has yeast in urine, ?treat- rest same DELIA SEPULVEDA MD Aug 07, 2016 10:18
--- NOTE | 2016-08-07 11:54 | PDOC ---
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, no follows commands SKIN: No rash IV: ok Labs Lab Laboratory Tests Test 08/07/16 05:45 White Blood Count 6.9x10^3/uL (4.0-11.0) Red Blood Count 4.02x10^6/uL (4.30-5.70) Hemoglobin 11.7g/dL (13.0-17.5) Hematocrit 37.0% (39.0-53.0) Mean Corpuscular Volume 92fL (79-100) Mean Corpuscular Hemoglobin 29pg (25-35) Mean Corpuscular Hemoglobin Concent 32g/dL (31-37) Red Cell Distribution Width 22.0% (11.5-14.5) Platelet Count 105x10^3/uL (140-400) Neutrophils (%) (Auto) 81% (31-73) Lymphocytes (%) (Auto) 9% (24-48) Monocytes (%) (Auto) 5% (0-9) Eosinophils (%) (Auto) 4% (0-3) Basophils (%) (Auto) 1% (0-3) Neutrophils # (Auto) 5.6x10^3uL (1.8-7.7) Lymphocytes # (Auto) 0.6x10^3/uL (1.0-4.8) Monocytes # (Auto) 0.3x10^3/uL (0.0-1.1) Eosinophils # (Auto) 0.3x10^3/uL (0.0-0.7) Basophils # (Auto) 0.1x10^3/uL (0.0-0.2) Sodium Level 153mmol/L (136-145) Potassium Level 3.0mmol/L (3.5-5.1) Chloride Level 119mmol/L (98-107) Carbon Dioxide Level 25mmol/L (21-32) Anion Gap 9 (6-14) Blood Urea Nitrogen 34mg/dL (8-26) Creatinine 1.8mg/dL (0.7-1.3) Estimated GFR (Cockcroft-Gault) 35.7 Glucose Level 128mg/dL (70-99) Calcium Level 7.9mg/dL (8.5-10.1) Micro URINE CULTURE RES 1 Final Yeast isolated. Greater than 100,000 colony forming units per mL 08/03. BLOOD CULT RESULT 1 Final Staphylococcus aureus MICS are expressed in micrograms per mL Antibiotic RSLT#1 Ciprofloxacin R Gentamicin S Levofloxacin I Linezolid S Moxifloxacin S Nitrofurantoin S Oxacillin S Penicillin R Quinupristin/Dalfopristin S Rifampin S Tetracycline S Trimethoprim/Sulfa S Vancomycin S Objective Assessment MSSA sepsis Fever. better CRISTIAN Dehydration UTI. yeast MRSA nares positive Plan Plan of Care cefazolin Repeat BC Needs echo supportive care CAROLYN GIORDANO PACKAGING INSPECTOR Aug 07, 2016 11:54
--- NOTE | 2016-08-07 12:59 | PDOC ---
PROGRESS NOTES Subjective Subjective SEEN IN FOLLOW UP OF DEHYDRATION AND HYPERNATREMIA Objective Objective Vital Signs Date Time Temp Pulse Resp B/P Pulse Ox O2 Delivery O2 Flow Rate FiO2 08/07/16 12:31 75 08/07/16 10:50 97.6 24 144/92 85 Room Air 97.6 08/07/16 08:00 4.0 Intake and Output 08/07/16 07:00 Intake Total 0 ml Output Total 2650 ml Balance -2650 ml Intake Oral 0 ml Output Urine Total 2650 ml # Bowel Movements 1 Physical Exam Abdomen: Normal bowel sounds, Soft, No tenderness, No hepatosplenomegaly, No masses Heart: Regular rate, Normal S1, Normal S2, No murmurs, Gallops Extremities: No clubbing, No cyanosis, No edema, Normal pulses, No tenderness/ swelling Lungs: Clear to auscultation, Normal air movement Diagnosis RENAL FAILURE: Acute, Other (DEHYDRATION WITH HYPERNATREMIA) Assessment Assessment Problems Medical Problems: (1) Failure to thrive Status: Acute (2) Hypernatremia Status: Acute (3) Pleural effusion Status: Acute (4) Severe dehydration Status: Acute Plan Plan of Care CONT FREE WATER AND FOLLOW .. LABS BETTER Comment Review of Relevant I have reviewed the following items sean (where applicable) has been applied. Labs Laboratory Tests Test 08/05/16 15:40 08/06/16 01:45 08/06/16 10:11 08/07/16 05:45 O2 Saturation 98% (92-99) Arterial Blood pH 7.36 (7.35-7.45) Arterial Blood pCO2 at Patient Temp 41mmHg (35-46) Arterial Blood pO2 at Patient Temp 131mmHg (65-108) Arterial Blood HCO3 22mmol/L (21-28) Arterial Blood Base Excess -3mmol/L (-3-3) FiO2 36.0 Sodium Level 160mmol/L (136-145) 157mmol/L (136-145) 153mmol/L (136-145) Potassium Level 3.0mmol/L (3.5-5.1) 2.9mmol/L (3.5-5.1) 3.0mmol/L (3.5-5.1) Chloride Level 124mmol/L (98-107) 121mmol/L (98-107) 119mmol/L (98-107) Carbon Dioxide Level 25mmol/L (21-32) 25mmol/L (21-32) 25mmol/L (21-32) Anion Gap 11 (6-14) 11 (6-14) 9 (6-14) Blood Urea Nitrogen 35mg/dL (8-26) 33mg/dL (8-26) 34mg/dL (8-26) Creatinine 2.1mg/dL (0.7-1.3) 2.0mg/dL (0.7-1.3) 1.8mg/dL (0.7-1.3) Estimated GFR (Cockcroft-Gault) 29.9 31.6 35.7 BUN/Creatinine Ratio 17 (6-20) Glucose Level 150mg/dL (70-99) 157mg/dL (70-99) 128mg/dL (70-99) Calcium Level 8.2mg/dL (8.5-10.1) 7.9mg/dL (8.5-10.1) 7.9mg/dL (8.5-10.1) Magnesium Level 1.8mg/dL (1.8-2.4) Total Bilirubin 0.9mg/dL (0.2-1.0) Aspartate Amino Transf (AST/SGOT) 18U/L (15-37) Alanine Aminotransferase (ALT/SGPT) 10U/L (16-63) Alkaline Phosphatase 73U/L (46-116) Total Protein 5.9g/dL (6.4-8.2) Albumin 1.7g/dL (3.4-5.0) Albumin/Globulin Ratio 0.4 (1.0-1.7) White Blood Count 6.9x10^3/uL (4.0-11.0) Red Blood Count 4.02x10^6/uL (4.30-5.70) Hemoglobin 11.7g/dL (13.0-17.5) Hematocrit 37.0% (39.0-53.0) Mean Corpuscular Volume 92fL (79-100) Mean Corpuscular Hemoglobin 29pg (25-35) Mean Corpuscular Hemoglobin Concent 32g/dL (31-37) Red Cell Distribution Width 22.0% (11.5-14.5) Platelet Count 105x10^3/uL (140-400) Neutrophils (%) (Auto) 81% (31-73) Lymphocytes (%) (Auto) 9% (24-48) Monocytes (%) (Auto) 5% (0-9) Eosinophils (%) (Auto) 4% (0-3) Basophils (%) (Auto) 1% (0-3) Neutrophils # (Auto) 5.6x10^3uL (1.8-7.7) Lymphocytes # (Auto) 0.6x10^3/uL (1.0-4.8) Monocytes # (Auto) 0.3x10^3/uL (0.0-1.1) Eosinophils # (Auto) 0.3x10^3/uL (0.0-0.7) Basophils # (Auto) 0.1x10^3/uL (0.0-0.2) Laboratory Tests Test 08/07/16 05:45 White Blood Count 6.9x10^3/uL (4.0-11.0) Red Blood Count 4.02x10^6/uL (4.30-5.70) Hemoglobin 11.7g/dL (13.0-17.5) Hematocrit 37.0% (39.0-53.0) Mean Corpuscular Volume 92fL (79-100) Mean Corpuscular Hemoglobin 29pg (25-35) Mean Corpuscular Hemoglobin Concent 32g/dL (31-37) Red Cell Distribution Width 22.0% (11.5-14.5) Platelet Count 105x10^3/uL (140-400) Neutrophils (%) (Auto) 81% (31-73) Lymphocytes (%) (Auto) 9% (24-48) Monocytes (%) (Auto) 5% (0-9) Eosinophils (%) (Auto) 4% (0-3) Basophils (%) (Auto) 1% (0-3) Neutrophils # (Auto) 5.6x10^3uL (1.8-7.7) Lymphocytes # (Auto) 0.6x10^3/uL (1.0-4.8) Monocytes # (Auto) 0.3x10^3/uL (0.0-1.1) Eosinophils # (Auto) 0.3x10^3/uL (0.0-0.7) Basophils # (Auto) 0.1x10^3/uL (0.0-0.2) Sodium Level 153mmol/L (136-145) Potassium Level 3.0mmol/L (3.5-5.1) Chloride Level 119mmol/L (98-107) Carbon Dioxide Level 25mmol/L (21-32) Anion Gap 9 (6-14) Blood Urea Nitrogen 34mg/dL (8-26) Creatinine 1.8mg/dL (0.7-1.3) Estimated GFR (Cockcroft-Gault) 35.7 Glucose Level 128mg/dL (70-99) Calcium Level 7.9mg/dL (8.5-10.1) Microbiology 08/03/16 Blood Culture - Final, Complete 08/03/16 Blood Culture Result 1 (MYLENE) - Final, Complete 08/03/16 Antimicrobic Susceptibility - Final, Complete 08/03/16 Urine Culture - Final, Complete 08/03/16 Urine Culture Result 1 (MYLENE) - Final, Complete Medications Current Medications Sodium Chloride (Iv Sodium Chloride 0.9% 1000ml Bag) 1,000 ml @ 1,000 mls/hr 1X ONCE IV Last administered on 08/03/16 14:14; Start 08/03/16 at 13:15; Stop 08/03/16 at 14:14; Status DC Ondansetron HCl 4 mg 4 mg PRN Q8HRS PRN IV NAUSEA/VOMITING; Start 08/03/16 at 14:00; Stop 08/04/16 at 13:59; Status DC Sodium Chloride 1,000 ml @ 125 mls/hr Q8H IV Last administered on 08/04/16 08 :23; Start 08/03/16 at 14:00; Stop 08/04/16 at 12:01; Status DC Piperacillin Sod/ Tazobactam Sod 3.375 gm/Sodium Chloride 50 ml @ 100 mls/hr 1X ONCE IV Last administered on 08/03/16 15:14; Start 08/03/16 at 14:00; Stop 08/03/16 at 14:29; Status DC Cefepime HCl 2 gm/ Sodium Chloride 100 ml @ 200 mls/hr Q24H IV Last administered on 08/05/16 16:55; Start 08/04/16 at 15:00; Stop 08/06/16 at 10:42 ; Status DC Linezolid 300 ml @ 300 mls/hr Q12HR IV Last administered on 08/06/16 08:42; Start 08/03/16 at 15:00; Stop 08/06/16 at 10:42; Status DC Cefepime HCl 2 gm/ Sodium Chloride 100 ml @ 200 mls/hr 1X ONCE IV Last administered on 08/03/16 14:34; Start 08/03/16 at 15:00; Stop 08/03/16 at 15:29 ; Status DC Sodium Chloride 1,000 ml @ 125 mls/hr 1X ONCE IV Last administered on 13:04; Start 08/04/16 at 12:00; Stop 08/04/16 at 19:59; Status DC Potassium Chloride 100 ml @ 100 mls/hr Q1H IV Last administered on 08/05/16 18:37; Start 08/05/16 at 08:00; Stop 08/05/16 at 11:59; Status DC Dextrose/Sodium Chloride 1,000 ml @ 50 mls/hr Q20H IV Last administered on 22:23; Start 08/05/16 at 10:00 Potassium Chloride 100 ml @ 100 mls/hr Q1H IV Last administered on 08/06/16 03:49; Start 08/05/16 at 13:00; Stop 08/05/16 at 14:59; Status DC Amino Acids/ Glycerin/ Electrolytes (Procalamine) 1,000 ml @ 80 mls/hr [id number] IV ; Start 08/05/16 at 12:45; Stop 08/05/16 at 19:00; Status DC Albuterol Sulfate (Ventolin Neb Soln) 2.5 mg PRN Q4HRS PRN NEB SHORTNESS OF BREATH; Start 08/05/16 at 15:00 Furosemide 40 mg 40 mg 1X ONCE IVP Last administered on 08/05/16 20:48; Start 08/05/16 at 19:00; Stop 08/05/16 at 19:03; Status DC Cefazolin Sodium 1 gm/Sodium Chloride 50 ml @ 100 mls/hr Q12HR IV Last administered on 4/15/17at 09:15; Start 08/06/16 at 21:00 Amino Acids/ Glycerin/ Electrolytes 1,000 ml @ 80 mls/hr [id number] IV Last administered on 08/07/16 01:46; Start 08/06/16 at 12:30 Potassium Chloride (KCl Premix 10meq) 100 ml @ 100 mls/hr Q1H IV Last administered on 08/06/16 14:15; Start 08/06/16 at 12:00; Stop 08/06/16 at 13:59 ; Status DC Active Scripts Active Reported Coreg (Carvedilol) 12.5 Mg Tablet 1 Tab PO BID Dulcolax (Bisacodyl) 5 Mg Tablet.dr 10 Mg RC PRN DAILY Acetaminophen 160 Mg/5 Ml Solution 650 Mg RC PRN Q4HRS Zofran (Ondansetron Hcl) 4 Mg Tablet 1 Tab PO PRN Q6HRS Voltaren (Diclofenac Sodium) 100 Gm Gel..gram. 1 Gm TP BID Synthroid (Levothyroxine Sodium) 150 Mcg Tablet 1 Tab PO DAILY Fleet Enema (Na Phos,M-B/Na Phos,Di-Ba) 133 Ml Enema 1 Each RC PRN DAILY Duoneb 0.5-3(2.5) Mg/3 Ml (Albuterol/Ipratropium) 3 Ml Ampul.neb 3 Ml NEB PRN QID Potassium Chloride 20 Meq Tablet.er 20 Meq PO DAILY Milk Of Magnesia (Magnesium Hydroxide) 2,400 Mg/10 Ml Oral.susp 2,400 Mg PO PRN DAILY PRN Tylenol (Acetaminophen) 325 Mg Tablet 2 Tab PO PRN Q4HRS Vitals/I & O Vital Sign - Last 24 Hours 08/06/16 08/06/16 08/06/16 08/06/16 15:00 19:00 20:00 23:44 Temp 97.9 97.6 97.9 97.6 Pulse 65 108 48 Resp 16 16 16 B/P 136/95 132/86 91/37 Pulse Ox 97 92 90 O2 Delivery Room Air Room Air Nasal Cannula Room Air O2 Flow Rate 4.0 08/07/16 08/07/16 08/07/16 08/07/16 03:34 07:10 08:00 10:50 Temp 97.0 97.6 97.6 97.0 97.6 97.6 Pulse 82 81 122 Resp 16 18 24 B/P 138/96 128/84 144/92 Pulse Ox 94 93 85 O2 Delivery Room Air Room Air Room Air Room Air O2 Flow Rate 4.0 08/07/16 12:31 Pulse 75 Intake and Output 08/06/16 08/06/16 08/07/16 15:00 23:00 07:00 Intake Total 0 ml Output Total 1600 ml 500 ml 550 ml Balance -1600 ml -500 ml -550 ml Nutrition Consultation Dietary Evaluation: Recommendations by RD: Increase Calorie Intake, Protein supplementation Comments: Continue boost pudding and magic cup w/meals Would consider PPN for short-term nutrition needs Expected Outcomes/Goals: not met, new goal : to meet >50% est nutr needs Malnutrition Findings: Food and Nutrition Intake (Mod: <75% est energy req 7days Body Fat Depletion (Non Severe: Mild Depletion Weight Status: Underweight SRINI SUMMERS MD Aug 07, 2016 12:59
[2016-08-07] MEDS: IV DEXTROSE 5 %-0.45 % NACL 1,000 ML IV SCH (14:17)
[2016-08-07] MEDS: POTASSIUM CHLORIDE 10MEQ 100 ML IV SCH ×2 (17:15→20:54)
[2016-08-08 03:53] VITALS: BP 142/98
[2016-08-08] MEDS: AA 3%/ELECTROLYTE-TPN SOLN/GLY 1,000 ML IV SCH ×2 (05:21→19:49)
[2016-08-08 07:22] VITALS: BP 125/89
--- NOTE | 2016-08-08 07:31 | PDOC ---
Provider Note Provider Note sleeping, fair output- today lab pending, cont procalmine and water prn r ehigh Na+- kcl added DELIA SEPULVEDA MD Aug 08, 2016 07:31
[2016-08-08 11:05] VITALS: BP 149/91
[2016-08-08] MEDS: IV DEXTROSE 5 %-0.45 % NACL 1,000 ML IV SCH (11:15)
[2016-08-08 14:57] VITALS: BP 142/97
[2016-08-08 19:45] VITALS: BP 140/79
--- NOTE | 2016-08-08 21:29 | HP ---
ADMIT DATE: 08/03/2016 CHIEF COMPLAINT AND HISTORY OF PRESENT ILLNESS: This 89-year-old male, resident of [facility] is known to us from seeing him there. He has had a failure to thrive for some period of time, thus leading him to come to [place] initially here a month or more ago. He has continued to eat poorly, drink poorly with limited amount of consciousness. LABORATORY DATA: Laboratory has shown his sodium in the mid 160s and despite a couple of units of heparin or saline at the [facility] several days ago . He is admitted at this time for that. PAST MEDICAL HISTORY: Remarkable for prior CVA, constipation, dementia, hyperlipidemia, hypothyroidism, chronic kidney disease, hyperlipidemia, history of substance. PAST SURGICAL HISTORY: He has no surgical history. SOCIAL HISTORY: He is a nonsmoker, nondrinker, and does not use drugs. FAMILY HISTORY: Noncontributory. MEDICATIONS: Brought with the patient, listed on the computer and have been addressed. ALLERGIES: He has no known drug allergies. REVIEW OF SYSTEMS: Unobtainable due to his depressed mental status. PHYSICAL EXAMINATION: GENERAL: He is a cachectic, somnolent-appearing white male, in no acute distress. VITAL SIGNS: Stable. He is afebrile. HEENT: Remarkable for dryness of mucous membranes. NECK: Supple without thyromegaly. CHEST: Clear to auscultation and percussion. There are slightly diminished breath sounds on the right. HEART: Regular rate and rhythm without S3, S4 or significant murmur. ABDOMEN: Soft, nontender without hepatosplenomegaly or masses. EXTREMITIES: Without cyanosis, clubbing, or edema. NEUROLOGIC: Remarkable for encephalopathic features and not really interacting with me at all. IMAGING DATA: CT of the head shows old infarct. Chest x-ray shows a [id number] size right pleural effusion with right perihilar infiltrate. Initial lab is remarkable for the sodium in the mid 160s and creatinine slightly over 2. IMPRESSION: Hyponatremia with severe dehydration, failure to thrive, pleural effusion, other problems listed above. PLAN: The patient has been admitted. He will be placed on IV fluids. Renal will be asked to see him and the patient will be monitored, managed and treated appropriately. RADAMES GUZMAN MD DR: Alisa JOB#: [id number] / [id number]
[2016-08-08 23:10] VITALS: BP 161/91
[2016-08-09] MEDS: AA 3%/ELECTROLYTE-TPN SOLN/GLY 1,000 ML IV SCH ×3 (02:42→21:13)
[2016-08-09 03:13] VITALS: BP 122/81
[2016-08-09 06:00] LABS: CALCIUM 7.7 mg/dL (8.5-10.1); CREATININE 1.3 mg/dL (0.7-1.3); POTASSIUM 3.2 mmol/L (3.5-5.1)
[2016-08-09 07:39] VITALS: BP 145/98
--- NOTE | 2016-08-09 07:48 | PDOC ---
Infectious Disease Note Subjective Subjective Mumbles No fever ROS ROS GEN: Denies fevers, chills, sweats HEENT: Denies blurred vision, sore throat CV: Denies chest pain RESP: Denies shortness of air, cough GI: Denies n/v/d NEURO: Denies confusion, dizziness MSK: Denies weakness, joint pain/swelling Vital Sign Vital Signs Vital Signs Date Time Temp Pulse Resp B/P Pulse Ox O2 Delivery O2 Flow Rate FiO2 08/09/16 03:13 98.1 47 18 122/81 98 Nasal Cannula 98.1 08/08/16 23:10 3.0 Physical Exam PHYSICAL EXAM GENERAL: Awake, NAD nml conj, OC-/Op - dry NECK: Supple, no JVD, no LN LUNGS: Clear HEART: S1S2, no murmur appreciated ABD: Soft, No grimace to palpation : [place] EXT: No edema, no cyanosis MACHINE OPERATOR GENERAL: Nonconversant, no follows commands SKIN: No rash IV: RUE PICC -clean Labs Lab Laboratory Tests Test 08/09/16 05:45 Sodium Level 147mmol/L (136-145) Potassium Level 3.2mmol/L (3.5-5.1) Chloride Level 114mmol/L (98-107) Carbon Dioxide Level 23mmol/L (21-32) Anion Gap 10 (6-14) Blood Urea Nitrogen 38mg/dL (8-26) Creatinine 1.3mg/dL (0.7-1.3) Estimated GFR (Cockcroft-Gault) 52.0 Glucose Level 108mg/dL (70-99) Calcium Level 7.7mg/dL (8.5-10.1) Objective Assessment MSSA sepsis Fever. better CRISTIAN Dehydration UTI. yeast MRSA nares positive Plan Plan of Care cefazolin increase to q 8 F/u repeat BC echo supportive care IRAIS PLATA MD Aug 09, 2016 07:48
--- NOTE | 2016-08-09 07:55 | PDOC ---
GENERAL General: vss and afebrile. O2 at 3L/NC. awakens and voices no complaints. Na down to 147 with K+ at 3.2. Creatinine has decreased to 1.3. I>O. chest with decreased breath sounds and heart regular. ongoing antibiotics for mssa sepsis. will recheck cxr. Problems: VITAL SIGNS Vital Signs: Vital Signs Date Time Temp Pulse Resp B/P Pulse Ox O2 Delivery O2 Flow Rate FiO2 08/09/16 03:13 98.1 47 18 122/81 98 Nasal Cannula 98.1 08/08/16 23:10 3.0 I & O I & O Intake and Output 08/09/16 07:00 Intake Total 1120 ml Output Total 750 ml Balance 370 ml Intake Oral 20 ml IV Total 1100 ml Output Urine Total 750 ml ALLERGIES Allergies: Allergies Coded Allergies Type Severity Reaction Last Updated Verified I S O L A T I O N *CONTACT* Allergy Unknown 08/04/16 Yes No Known Medication Allergies Allergy Unknown 08/04/16 Yes MEDS Medications: Current Medications Medications (Trade) Dose Ordered Sig/Sammy Start Time Stop Time Status Last Admin Dose Admin Albuterol Sulfate (Ventolin Neb Soln) 2.5 mg PRN Q4HRS PRN 08/05/16 15:00 Amino Acids/ Glycerin/ Electrolytes 1,000 ml @ 80 mls/hr [id number] 08/06/16 12:30 08/08/16 19:49 80 MLS/HR Amino Acids/ Glycerin/ Electrolytes (Procalamine) 1,000 ml @ 80 mls/hr [id number] 08/05/16 12:45 08/05/16 19:00 DC Cefazolin Sodium 1 gm/Sodium Chloride 50 ml @ 100 mls/hr Q12HR 08/06/16 21:00 08/09/16 07:49 DC 08/08/16 19:50 100 MLS/HR Cefazolin Sodium/ Sodium Chloride (Ancef/Iv Sodium Chloride 0.9% 50ml) 50 ml @ 100 mls/hr Q8HRS 08/09/16 14:00 UNV Cefepime HCl 2 gm/ Sodium Chloride 100 ml @ 200 mls/hr 1X ONCE 08/03/16 15:00 08/03/16 15:29 DC 08/03/16 14:34 200 MLS/HR Dextrose/Sodium Chloride 1,000 ml @ 50 mls/hr Q20H 08/05/16 10:00 08/08/16 11:15 50 MLS/HR Furosemide 40 mg 40 mg 1X ONCE 08/05/16 19:00 08/05/16 19:03 DC 08/05/16 20:48 40 MG Linezolid 300 ml @ 300 mls/hr Q12HR 08/03/16 15:00 08/06/16 10:42 DC 08/06/16 08:42 300 MLS/HR Ondansetron HCl 4 mg 4 mg PRN Q8HRS PRN 08/03/16 14:00 08/04/16 13:59 DC Piperacillin Sod/ Tazobactam Sod 3.375 gm/Sodium Chloride 50 ml @ 100 mls/hr 1X ONCE 08/03/16 14:00 08/03/16 14:29 DC 08/03/16 15:14 100 MLS/HR Potassium Chloride 100 ml @ 100 mls/hr Q1H 08/07/16 17:00 08/07/16 18:59 DC 08/07/16 20:54 100 MLS/HR Sodium Chloride 1,000 ml @ 125 mls/hr 1X ONCE 08/04/16 12:00 08/04/16 19:59 DC 08/04/16 13:04 125 MLS/HR Sodium Chloride (Iv Sodium Chloride 0.9% 1000ml Bag) 1,000 ml @ 1,000 mls/hr 1X ONCE 08/03/16 13:15 08/03/16 14:14 DC 08/03/16 14:14 1,000 MLS/HR LAB Lab: Laboratory Tests Test 08/09/16 05:45 Sodium Level 147mmol/L (136-145) Potassium Level 3.2mmol/L (3.5-5.1) Chloride Level 114mmol/L (98-107) Carbon Dioxide Level 23mmol/L (21-32) Anion Gap 10 (6-14) Blood Urea Nitrogen 38mg/dL (8-26) Creatinine 1.3mg/dL (0.7-1.3) Estimated GFR (Cockcroft-Gault) 52.0 Glucose Level 108mg/dL (70-99) Calcium Level 7.7mg/dL (8.5-10.1) Nutrition Consultation Dietary Evaluation: Recommendations by RD: Increase Calorie Intake, Protein supplementation Comments: Continue boost pudding and magic cup w/meals Would consider PPN for short-term nutrition needs Expected Outcomes/Goals: not met, new goal : to meet >50% est nutr needs Malnutrition Findings: Food and Nutrition Intake (Mod: <75% est energy req 7days Body Fat Depletion (Non Severe: Mild Depletion Weight Status: Underweight APPL,RADAMES Sheth MD Aug 09, 2016 07:55
[2016-08-09] MEDS: IV DEXTROSE 5 %-0.45 % NACL 1,000 ML IV SCH (09:26)
[2016-08-09] MEDS ORDERED: MORPHINE SULFATE 2 MG/ML DISP.SYRIN. IV PRN ×2 (09:30)
[2016-08-09 10:15] VITALS: BP 126/86
[2016-08-09] MEDS ORDERED: MAGNESIUM SULFATE 2GM 50 ML IV PRN ×2 (12:00→12:15)
--- NOTE | 2016-08-09 12:01 | PDOC ---
SUBJECTIVE ROS CRISTIAN and elyte ABN Unable to get ROS due to underlying Dementia OBJECTIVE Vital Signs Vital Signs Date Time Temp Pulse Resp B/P Pulse Ox O2 Delivery O2 Flow Rate FiO2 08/09/16 11:02 96 Nasal Cannula 4.0 08/09/16 10:15 97.6 76 18 126/86 97.6 I & 0 Intake and Output 08/09/16 07:00 Intake Total 1120 ml Output Total 750 ml Balance 370 ml Intake Oral 20 ml IV Total 1100 ml Output Urine Total 750 ml PHYSICAL EXAM Physical Exam GEN: barely Awake, Oriented x 0, In no distress EYES: Vision Unchanged, Conjunctiva Normal EN: No EN Drainage, Mucous Membranes dry NECK: no JVD, min JVP, Supple, no Thyromegaly CVS: S1S2, no Murmur, No Gallop, No Rub,no Edema RESP: no Rales, no Rhonchi,no Acc. Muscle Use GI: BS + ve, NO Bruit, Non Tender, Non Distended : no CVA tenderness, no Suprapubic Tenderness - domínguez in palce DIAGNOSIS/ASSESSMENT Assessment & Plan DEHYDRATION - much improved; Uo is good too HYPERNATREMIA - ct hypotonic IVF HYPOKALEMIA - replace with IVF; check and correct mag too UTI - defer to Dr Noble CRISTIAN - BETTER (? asso with UTI vs dehydsration) - [id number] for now CKD STAGE 3 - cannot be ruled out Problems: COMMENT/RELEVANT DATA Meds Current Medications Medications (Trade) Dose Ordered Sig/Sammy Start Time Stop Time Status Last Admin Dose Admin Albuterol Sulfate (Ventolin Neb Soln) 2.5 mg PRN Q4HRS PRN 08/05/16 15:00 Amino Acids/ Glycerin/ Electrolytes 1,000 ml @ 80 mls/hr [id number] 08/06/16 12:30 08/08/16 19:49 80 MLS/HR Amino Acids/ Glycerin/ Electrolytes (Procalamine) 1,000 ml @ 80 mls/hr [id number] 08/05/16 12:45 08/05/16 19:00 DC Cefazolin Sodium 1 gm/Sodium Chloride 50 ml @ 100 mls/hr Q12HR 08/06/16 21:00 08/09/16 07:49 DC 08/08/16 19:50 100 MLS/HR Cefazolin Sodium/ Sodium Chloride (Ancef/Iv Sodium Chloride 0.9% 50ml) 50 ml @ 100 mls/hr Q8HRS 08/09/16 14:00 Cefepime HCl 2 gm/ Sodium Chloride 100 ml @ 200 mls/hr 1X ONCE 08/03/16 15:00 08/03/16 15:29 DC 08/03/16 14:34 200 MLS/HR Dextrose/Sodium Chloride 1,000 ml @ 50 mls/hr Q20H 08/05/16 10:00 08/09/16 09:26 50 MLS/HR Furosemide 40 mg 40 mg 1X ONCE 08/05/16 19:00 08/05/16 19:03 DC 08/05/16 20:48 40 MG Linezolid 300 ml @ 300 mls/hr Q12HR 08/03/16 15:00 08/06/16 10:42 DC 08/06/16 08:42 300 MLS/HR Morphine Sulfate 2 mg PRN Q4HRS PRN 08/09/16 09:30 Ondansetron HCl 4 mg 4 mg PRN Q8HRS PRN 08/03/16 14:00 08/04/16 13:59 DC Piperacillin Sod/ Tazobactam Sod 3.375 gm/Sodium Chloride 50 ml @ 100 mls/hr 1X ONCE 08/03/16 14:00 08/03/16 14:29 DC 08/03/16 15:14 100 MLS/HR Potassium Chloride 100 ml @ 100 mls/hr Q1H 08/07/16 17:00 08/07/16 18:59 DC 08/07/16 20:54 100 MLS/HR Sodium Chloride 1,000 ml @ 125 mls/hr 1X ONCE 08/04/16 12:00 08/04/16 19:59 DC 08/04/16 13:04 125 MLS/HR Sodium Chloride (Iv Sodium Chloride 0.9% 1000ml Bag) 1,000 ml @ 1,000 mls/hr 1X ONCE 08/03/16 13:15 08/03/16 14:14 DC 08/03/16 14:14 1,000 MLS/HR Lab Laboratory Tests Test 08/09/16 05:45 Sodium Level 147mmol/L (136-145) Potassium Level 3.2mmol/L (3.5-5.1) Chloride Level 114mmol/L (98-107) Carbon Dioxide Level 23mmol/L (21-32) Anion Gap 10 (6-14) Blood Urea Nitrogen 38mg/dL (8-26) Creatinine 1.3mg/dL (0.7-1.3) Estimated GFR (Cockcroft-Gault) 52.0 Glucose Level 108mg/dL (70-99) Calcium Level 7.7mg/dL (8.5-10.1) TYRONE HE MD Aug 09, 2016 12:01
[2016-08-09] MEDS ORDERED: POTASSIUM CHLORIDE 20MEQ 50 ML IV PRN ×2 (12:15)
[2016-08-09] MEDS: POTASSIUM CHLORIDE 20MEQ 50 ML IV SCH ×2 (14:00→15:32)
[2016-08-09 15:28] VITALS: BP 147/78
--- NOTE | 2016-08-09 18:12 | RAD ---
PROCEDURE Chest, single view. HISTORY PICC line placement. FINDINGS A frontal view of the chest is obtained. There is no prior study for comparison at the time of dictation. There is a right PICC with the tip in the superior vena cava. There are small to moderate right and small left pleural effusions with diffuse right lung and left lower lobe infiltrate. There is mild enlargement of the cardiac silhouette, a component of which is due to portable technique. There is no pneumothorax. IMPRESSION 1. Right PICC with the tip in the superior vena cava. 2. Small to moderate right and small left pleural effusions. 3. Diffuse right lung and left lower lobe infiltrate. Electronically signed by: Sanjuana Kay (Aug 09, 2016 18:11:49)
[2016-08-09 19:00] VITALS: BP 123/88
[2016-08-09 23:00] VITALS: BP 135/88
[2016-08-10] MEDS: IV DEXTROSE 5 %-0.45 % NACL 1,000 ML IV SCH ×2 (02:17→22:02)
[2016-08-10 03:00] VITALS: BP 124/55
[2016-08-10] MEDS: AA 3%/ELECTROLYTE-TPN SOLN/GLY 1,000 ML IV SCH ×3 (03:27→22:02)
[2016-08-10 07:08] LABS: CALCIUM 7.6 mg/dL (8.5-10.1); CREATININE 1.3 mg/dL (0.7-1.3); POTASSIUM 4.5 mmol/L (3.5-5.1)
[2016-08-10 07:39] VITALS: BP 131/83
--- NOTE | 2016-08-10 08:09 | PDOC ---
GENERAL General: vss and afebrile. more awake and alert this am. Na normal at 142 and K+ normal at 4.5. BUN 47 and creatinine 1.3. echo pending. cxr about same. O2 at 2-4L/NC. exam stable. continue same. Problems: VITAL SIGNS Vital Signs: Vital Signs Date Time Temp Pulse Resp B/P Pulse Ox O2 Delivery O2 Flow Rate FiO2 08/10/16 03:00 97.5 78 20 124/55 98 Nasal Cannula 4.0 97.5 I & O I & O Intake and Output 08/10/16 07:00 Intake Total 1100 ml Output Total 300 ml Balance 800 ml Intake Oral 0 ml IV Total 1100 ml Output Urine Total 300 ml ALLERGIES Allergies: Allergies Coded Allergies Type Severity Reaction Last Updated Verified I S O L A T I O N *CONTACT* Allergy Unknown 08/04/16 Yes No Known Medication Allergies Allergy Unknown 08/04/16 Yes MEDS Medications: Current Medications Medications (Trade) Dose Ordered Sig/Sammy Start Time Stop Time Status Last Admin Dose Admin Albuterol Sulfate (Ventolin Neb Soln) 2.5 mg PRN Q4HRS PRN 08/05/16 15:00 Amino Acids/ Glycerin/ Electrolytes 1,000 ml @ 125 mls/hr Q8H 08/06/16 12:30 08/10/16 03:27 125 MLS/HR Amino Acids/ Glycerin/ Electrolytes (Procalamine) 1,000 ml @ 80 mls/hr [id number] 08/05/16 12:45 08/05/16 19:00 DC Cefazolin Sodium 1 gm/Sodium Chloride 50 ml @ 100 mls/hr Q12HR 08/06/16 21:00 08/09/16 07:49 DC 08/08/16 19:50 100 MLS/HR Cefazolin Sodium/ Sodium Chloride (Ancef/Iv Sodium Chloride 0.9% 50ml) 50 ml @ 100 mls/hr Q8HRS 08/09/16 14:00 08/10/16 06:08 100 MLS/HR Cefepime HCl 2 gm/ Sodium Chloride 100 ml @ 200 mls/hr 1X ONCE 08/03/16 15:00 08/03/16 15:29 DC 08/03/16 14:34 200 MLS/HR Dextrose/Sodium Chloride 1,000 ml @ 50 mls/hr Q20H 08/05/16 10:00 08/09/16 09:26 50 MLS/HR Furosemide 40 mg 40 mg 1X ONCE 08/05/16 19:00 08/05/16 19:03 DC 08/05/16 20:48 40 MG Linezolid 300 ml @ 300 mls/hr Q12HR 08/03/16 15:00 08/06/16 10:42 DC 08/06/16 08:42 300 MLS/HR Magnesium Sulfate/ Dextrose 50 ml @ 25 mls/hr PRN DAILY PRN 08/09/16 12:15 Morphine Sulfate 2 mg 2 mg PRN Q4HRS PRN 08/09/16 09:30 08/09/16 22:10 2 MG Ondansetron HCl 4 mg 4 mg PRN Q8HRS PRN 08/03/16 14:00 08/04/16 13:59 DC Piperacillin Sod/ Tazobactam Sod 3.375 gm/Sodium Chloride 50 ml @ 100 mls/hr 1X ONCE 08/03/16 14:00 08/03/16 14:29 DC 08/03/16 15:14 100 MLS/HR Potassium Chloride (KCl Premix 20meq) 50 ml @ 50 mls/hr Q1H 08/09/16 13:00 08/09/16 14:59 DC 08/09/16 14:00 50 MLS/HR Sodium Chloride 1,000 ml @ 125 mls/hr 1X ONCE 08/04/16 12:00 08/04/16 19:59 DC 08/04/16 13:04 125 MLS/HR Sodium Chloride (Iv Sodium Chloride 0.9% 1000ml Bag) 1,000 ml @ 1,000 mls/hr 1X ONCE 08/03/16 13:15 08/03/16 14:14 DC 08/03/16 14:14 1,000 MLS/HR LAB Lab: Laboratory Tests Test 08/10/16 06:20 Hemoglobin 10.4g/dL (13.0-17.5) Sodium Level 142mmol/L (136-145) Potassium Level 4.5mmol/L (3.5-5.1) Chloride Level 111mmol/L (98-107) Carbon Dioxide Level 23mmol/L (21-32) Anion Gap 8 (6-14) Blood Urea Nitrogen 47mg/dL (8-26) Creatinine 1.3mg/dL (0.7-1.3) Estimated GFR (Cockcroft-Gault) 52.0 Glucose Level 116mg/dL (70-99) Calcium Level 7.6mg/dL (8.5-10.1) Magnesium Level 2.1mg/dL (1.8-2.4) Nutrition Consultation Dietary Evaluation: Recommendations by RD: Increase Calorie Intake, Protein supplementation, PPN/ TPN Comments: Continue boost pudding and magic cup w/meals continue PPN for short-term nutrition needs 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
--- NOTE | 2016-08-10 10:55 | PDOC ---
Infectious Disease Note Subjective Subjective more alert No fever ROS ROS ? reliable GEN: Denies fevers, chills, sweats HEENT: Denies blurred vision, sore throat CV: Denies chest pain RESP: Denies shortness of air, cough GI: Denies n/v/d NEURO: Denies confusion, dizziness MSK: Denies weakness, joint pain/swelling Vital Sign Vital Signs Vital Signs Date Time Temp Pulse Resp B/P Pulse Ox O2 Delivery O2 Flow Rate FiO2 08/10/16 08:00 Nasal Cannula 2.0 08/10/16 07:39 97.1 65 20 131/83 96 97.1 Physical Exam PHYSICAL EXAM GENERAL: Awake, NAD nml conj, OC-/Op - dry NECK: Supple, no JVD, no LN LUNGS: Clear HEART: S1S2, no murmur appreciated ABD: Soft, No grimace to palpation : [place] EXT: No edema, no cyanosis COMMUNICATIONS EXECUTIVE: Nonconversant, no follows commands SKIN: No rash IV: RUE PICC -clean Labs Lab Laboratory Tests Test 08/10/16 06:20 Hemoglobin 10.4g/dL (13.0-17.5) Sodium Level 142mmol/L (136-145) Potassium Level 4.5mmol/L (3.5-5.1) Chloride Level 111mmol/L (98-107) Carbon Dioxide Level 23mmol/L (21-32) Anion Gap 8 (6-14) Blood Urea Nitrogen 47mg/dL (8-26) Creatinine 1.3mg/dL (0.7-1.3) Estimated GFR (Cockcroft-Gault) 52.0 Glucose Level 116mg/dL (70-99) Calcium Level 7.6mg/dL (8.5-10.1) Magnesium Level 2.1mg/dL (1.8-2.4) Objective Assessment MSSA sepsis Fever. better CRISTIAN Dehydration UTI. yeast MRSA nares positive Plan Plan of Care cefazolin increase to q 8 F/u repeat BC neg so far F/u echo supportive care IRAIS PLATA MD Aug 10, 2016 10:55
[2016-08-10 11:36] VITALS: BP 123/71
[2016-08-10 15:11] LABS: INR 1.4 (0.8-1.1); PROTHROMBIN TIME PATIENT 16.4 SEC (11.7-14.0)
--- NOTE | 2016-08-10 16:20 | CARD ---
APPROVED REPORT EXAM: Two-dimensional and M-mode echocardiogram with Doppler and color Doppler. Other Information Quality : GoodHR: 71bpm Rhythm : NSR INDICATION MSSA bacteremia 2D DIMENSIONS RVDd3.2 (2.9-3.5cm)Left Atrium(2D)3.7 (1.6-4.0cm) IVSd1.1 (0.7-1.1cm)Aortic Root(2D)3.3 (2.0-3.7cm) LVDd5.7 (3.9-5.9cm)LVOT Diameter2.2 (1.8-2.4cm) PWd1.0 (0.7-1.1cm)LVDs4.9 (2.5-4.0cm) FS (%) 14.0 %SV46.7 ml LVEF(%)25.0 (>50%) Aortic Valve AoV Peak Chevy.50.4cm/sAoV VTI7.4cm AO Peak GR.1.0mmHgLVOT VTI 5.29cm AO Mean GR.1mmHgAI P 1/2 [id number] Mitral Valve MV E Ajsbahwg778.4cm/sMV E Peak Gr.3mmHg MV DECEL [id number] A Fnhnlsvs13.4cm/s MV E Mean Gr.2mmHgE/A Ratio3.3 MV A [id number] TDI Lateral E' P. V8.04cm/sMedial E' P. V4.31cm/s E/Lateral E'15.6E/Medial E'29.1 Tricuspid Valve TR P. Qpucjoxf350nc/sRAP [id number] TR Peak Gr.12jmBuOZEJ13hfTb LEFT VENTRICLE The left ventricle is dilated There is normal left ventricular wall thickness. Left ventricle systoli c function is severely impaired. The Ejection Fraction is 25%. There is global hypokinesis of the lef t ventricle. Transmitral Doppler flow pattern is Grade IV-fixed restrictive diastolic dysfunction. Th ere is no ventricular septal defect visualized. RIGHT VENTRICLE The right ventricle is normal size. There is normal right ventricular wall thickness. The right ventr icular systolic function is mildly impaired ATRIA The left atrium is moderately dilated. The right atrium is moderately dilated. The interatrial septum is intact with no evidence for an atrial septal defect or patent foramen ovale as noted on 2-D or Do ppler imaging. AORTIC VALVE The aortic valve is normal in structure The aortic valve is trileaflet. Doppler and Color Flow reveal ed mild aortic regurgitation. There is no significant aortic valvular stenosis. No vegetations seen o n the aortic valve MITRAL VALVE The mitral valve is normal in structure. There is mild mitral valve prolapse of the anterior leaflet. There is no mitral valve stenosis. Doppler and Color Flow revealed moderate to severe mitral regurgi tation. TRICUSPID VALVE The tricuspid valve is normal in structure. Doppler and Color Flow revealed mild to moderate tricuspi d regurgitation. There is moderate pulmonary hypertension. The PA pressure was estimated at 48 mmHg. PULMONIC VALVE The pulmonary valve is normal in structure. Doppler and Color Flow revealed mild pulmonic valvular re gurgitation. GREAT VESSELS The aortic root is normal in size. The ascending aorta is normal in size. The IVC is normal in size a nd collapses <50% with inspiration. PERICARDIAL EFFUSION There is large left and right pleural effusion. There is a trace loculated anterior pericardial effus ion. Critical Notification Critical Value: No <Conclusion> Left ventricle systolic function is severely impaired. The Ejection Fraction is 25%. There is global hypokinesis of the left ventricle. Transmitral Doppler flow pattern is Grade IV-fixed restrictive diastolic dysfunction. The left ventricle is dilated The right ventricular systolic function is mildly impaired The left atrium is moderately dilated. The right atrium is moderately dilated. Doppler and Color Flow revealed mild aortic regurgitation. No vegetations seen on the aortic valve There is mild mitral valve prolapse of the anterior leaflet. There is no mitral valve stenosis. Doppler and Color Flow revealed moderate to severe mitral regurgitation. Doppler and Color Flow revealed mild to moderate tricuspid regurgitation. There is moderate pulmonary hypertension. The PA pressure was estimated at 48 mmHg. Doppler and Color Flow revealed mild pulmonic valvular regurgitation. There is a trace loculated anterior pericardial effusion. There is large left and right pleural effusion. No vegetations seen on any of the valves
--- NOTE | 2016-08-10 16:55 | RAD ---
Indication assess PICC line placement. A single view of the chest was obtained and is compared to a study one day earlier. Heart size is unchanged. Pulmonary vasculature is similar. There are bilateral pleural effusions right greater than left. Pleural effusions appear larger. Right PICC line persists unchanged. There is a new new left PICC line. The tip extends to the SVC right atrial junction. IMPRESSION: Increasing pleural effusions. Interval placement of left PICC line. The tip extends to the SVC right atrial junction
[2016-08-10] MEDS ORDERED: 0.9 % SODIUM CHLORIDE 10 ML DISP.SYRIN. IV PRN ×2 (17:00)
--- NOTE | 2016-08-10 17:37 | RAD ---
PROCEDURE Right upper extremity venous Doppler sonogram. HISTORY Right upper extremity swelling. TECHNIQUE Grayscale and color Doppler sonographic imaging of the right upper extremity veins with spectral waveform analysis was performed. COMPARISON None. FINDINGS There is normal color flow, normal compressibility and there are normal spectral waveforms within the right upper extremity veins. IMPRESSION No Doppler evidence of right upper extremity venous thrombosis. Electronically signed by: Sanjuana Kay (Aug 10, 2016 17:35:37)
[2016-08-10 19:24] VITALS: BP 140/83
[2016-08-10 23:00] VITALS: BP 136/84
[2016-08-11 03:51] VITALS: BP 146/87
[2016-08-11 05:24] LABS: MAGNESIUM 2.2 mg/dL (1.8-2.4); POTASSIUM 4.4 mmol/L (3.5-5.1)
[2016-08-11 07:00] VITALS: BP 134/94
--- NOTE | 2016-08-11 08:12 | PDOC ---
GENERAL General: vss and afebrile. Na 139 and K+ 4.4. awake and alert with some aphasic speech errors but fully engaged this am. speech has determined swallow unsafe and will ask SS to discuss with family how far we want to go with feeding tube,etc. MSSA sepsis without definite source and negative echo by review. will defer antibiotics to ID. Problems: VITAL SIGNS Vital Signs: Vital Signs Date Time Temp Pulse Resp B/P Pulse Ox O2 Delivery O2 Flow Rate FiO2 08/11/16 07:00 97.4 67 22 134/94 98 Nasal Cannula 4.0 97.4 I & O I & O Intake and Output 08/11/16 06:59 Intake Total 0 ml Output Total 150 ml Balance -150 ml Intake Oral 0 ml Output Urine Total 150 ml ALLERGIES Allergies: Allergies Coded Allergies Type Severity Reaction Last Updated Verified I S O L A T I O N *CONTACT* Allergy Unknown 08/04/16 Yes No Known Medication Allergies Allergy Unknown 08/04/16 Yes MEDS Medications: Current Medications Medications (Trade) Dose Ordered Sig/Sammy Start Time Stop Time Status Last Admin Dose Admin Albuterol Sulfate (Ventolin Neb Soln) 2.5 mg PRN Q4HRS PRN 08/05/16 15:00 Amino Acids/ Glycerin/ Electrolytes 1,000 ml @ 125 mls/hr Q8H 08/06/16 12:30 08/10/16 22:02 125 MLS/HR Amino Acids/ Glycerin/ Electrolytes (Procalamine) 1,000 ml @ 80 mls/hr [id number] 08/05/16 12:45 08/05/16 19:00 DC Cefazolin Sodium 1 gm/Sodium Chloride 50 ml @ 100 mls/hr Q12HR 08/06/16 21:00 08/09/16 07:49 DC 08/08/16 19:50 100 MLS/HR Cefazolin Sodium/ Sodium Chloride (Ancef/Iv Sodium Chloride 0.9% 50ml) 50 ml @ 100 mls/hr Q8HRS 08/09/16 14:00 08/11/16 04:31 100 MLS/HR Cefepime HCl 2 gm/ Sodium Chloride 100 ml @ 200 mls/hr 1X ONCE 08/03/16 15:00 08/03/16 15:29 DC 08/03/16 14:34 200 MLS/HR Dextrose/Sodium Chloride 1,000 ml @ 50 mls/hr Q20H 08/05/16 10:00 08/10/16 22:02 50 MLS/HR Furosemide 40 mg 40 mg 1X ONCE 08/05/16 19:00 08/05/16 19:03 DC 08/05/16 20:48 40 MG Linezolid 300 ml @ 300 mls/hr Q12HR 08/03/16 15:00 08/06/16 10:42 DC 08/06/16 08:42 300 MLS/HR Magnesium Sulfate/ Dextrose 50 ml @ 25 mls/hr PRN DAILY PRN 08/09/16 12:15 Morphine Sulfate 2 mg 2 mg PRN Q4HRS PRN 08/09/16 09:30 08/09/16 22:10 2 MG Ondansetron HCl 4 mg 4 mg PRN Q8HRS PRN 08/03/16 14:00 08/04/16 13:59 DC Piperacillin Sod/ Tazobactam Sod 3.375 gm/Sodium Chloride 50 ml @ 100 mls/hr 1X ONCE 08/03/16 14:00 08/03/16 14:29 DC 08/03/16 15:14 100 MLS/HR Potassium Chloride (KCl Premix 20meq) 50 ml @ 50 mls/hr Q1H 08/09/16 13:00 08/09/16 14:59 DC 08/09/16 14:00 50 MLS/HR Sodium Chloride (Iv Sodium Chloride 0.9% 1000ml Bag) 1,000 ml @ 1,000 mls/hr 1X ONCE 08/03/16 13:15 08/03/16 14:14 DC 08/03/16 14:14 1,000 MLS/HR Sodium Chloride (Normal Saline Flush) 20 ml QSHIFT PRN 08/10/16 17:00 LAB Lab: Laboratory Tests Test 08/10/16 14:40 08/10/16 18:30 08/11/16 04:40 Prothrombin Time 16.4SEC (11.7-14.0) Prothromb Time International Ratio 1.4 (0.8-1.1) Potassium Level 4.4mmol/L (3.5-5.1) 4.1mmol/L (3.5-5.1) 4.4mmol/L (3.5-5.1) Sodium Level 139mmol/L (136-145) Chloride Level 109mmol/L (98-107) Carbon Dioxide Level 22mmol/L (21-32) Anion Gap 8 (6-14) Magnesium Level 2.2mg/dL (1.8-2.4) Nutrition Consultation Dietary Evaluation: Recommendations by RD: Increase Calorie Intake, Protein supplementation, PPN/ TPN Comments: Continue boost pudding and magic cup w/meals continue PPN for short-term nutrition needs consider TF for retirement nutrition Expected Outcomes/Goals: not met, new goal : to meet >50% est nutr needs Malnutrition Findings: Food and Nutrition Intake (Mod: <75% est energy req 7days Body Fat Depletion (Non Severe: Mild Depletion Weight Status: Underweight RADAMES GUZMAN MD Aug 11, 2016 08:12
--- NOTE | 2016-08-11 09:24 | PDOC ---
Infectious Disease Note Subjective Subjective more alert No fever Mumbles ROS ROS Difficult to acquire Vital Sign Vital Signs Vital Signs Date Time Temp Pulse Resp B/P Pulse Ox O2 Delivery O2 Flow Rate FiO2 08/11/16 07:00 97.4 67 22 134/94 98 Nasal Cannula 4.0 97.4 Physical Exam PHYSICAL EXAM GENERAL: Awake, NAD nml conj, OC-/Op - dry NECK: Supple, no JVD, no LN LUNGS: Clear HEART: S1S2, no murmur appreciated ABD: Soft, No grimace to palpation : [place] EXT: No edema, no cyanosis SEAT SCOOPER MACHINE: Nonconversant, no follows commands SKIN: No rash IV: LUE PICC -clean Labs Lab Laboratory Tests Test 08/10/16 14:40 08/10/16 18:30 08/11/16 04:40 Prothrombin Time 16.4SEC (11.7-14.0) Prothromb Time International Ratio 1.4 (0.8-1.1) Potassium Level 4.4mmol/L (3.5-5.1) 4.1mmol/L (3.5-5.1) 4.4mmol/L (3.5-5.1) Sodium Level 139mmol/L (136-145) Chloride Level 109mmol/L (98-107) Carbon Dioxide Level 22mmol/L (21-32) Anion Gap 8 (6-14) Magnesium Level 2.2mg/dL (1.8-2.4) Objective Assessment MSSA sepsis 08/03. repeat 08/07 neg. TTE - neg valves. Trace loculated pericardial effusion EF 25 % Fever. better CRISTIAN Dehydration UTI. yeast MRSA nares positive Plan Plan of Care ? Cardiology consult ? Palliative eval for goals of care given dysphagia cefazolin increase to q 8 will need until 5/12 min F/u repeat BC neg so far supportive care IRAIS PLATA MD Aug 11, 2016 09:24
[2016-08-11] MEDS: AA 3%/ELECTROLYTE-TPN SOLN/GLY 1,000 ML IV SCH ×3 (09:41→21:45)
[2016-08-11 11:00] VITALS: BP 153/108
[2016-08-11] MEDS ORDERED: CLONIDINE TTS TD SCH (12:00)
--- NOTE | 2016-08-11 14:30 | PDOC ---
SUBJECTIVE ROS CRISTIAN / elytes Doing some better OBJECTIVE Vital Signs Vital Signs Date Time Temp Pulse Resp B/P Pulse Ox O2 Delivery O2 Flow Rate FiO2 08/11/16 11:00 97.3 53 20 153/108 96 Nasal Cannula 4.0 97.3 I & 0 Intake and Output 08/11/16 07:00 Intake Total 0 ml Output Total 150 ml Balance -150 ml Intake Oral 0 ml Output Urine Total 150 ml PHYSICAL EXAM Physical Exam General Appearance: more Awake today Alert Oriented x 0 Neck: No JVD or JVP Chest: CTA Masood Heart: S1 S2 Abdomen - Soft NTND Extremities - No Edema DIAGNOSIS/ASSESSMENT Assessment & Plan DEHYDRATION - much improved; HYPERNATREMIA - resolved with hypotonic IVF/ PPN Nutrition - TPn until family decides on PEG Will sign off - Pl call prn Problems: COMMENT/RELEVANT DATA Meds Current Medications Medications (Trade) Dose Ordered Sig/Sammy Start Time Stop Time Status Last Admin Dose Admin Albuterol Sulfate (Ventolin Neb Soln) 2.5 mg PRN Q4HRS PRN 08/05/16 15:00 Amino Acids/ Glycerin/ Electrolytes 1,000 ml @ 125 mls/hr Q8H 08/06/16 12:30 08/11/16 09:41 125 MLS/HR Amino Acids/ Glycerin/ Electrolytes (Procalamine) 1,000 ml @ 80 mls/hr [id number] 08/05/16 12:45 08/05/16 19:00 DC Cefazolin Sodium 1 gm/Sodium Chloride 50 ml @ 100 mls/hr Q12HR 08/06/16 21:00 08/09/16 07:49 DC 08/08/16 19:50 100 MLS/HR Cefazolin Sodium/ Sodium Chloride (Ancef/Iv Sodium Chloride 0.9% 50ml) 50 ml @ 100 mls/hr Q8HRS 08/09/16 14:00 08/11/16 04:31 100 MLS/HR Cefepime HCl 2 gm/ Sodium Chloride 100 ml @ 200 mls/hr 1X ONCE 08/03/16 15:00 08/03/16 15:29 DC 08/03/16 14:34 200 MLS/HR Clonidine HCl (Catapres Tts-1) 1 patch WEEKLY 08/11/16 12:00 Dextrose/Sodium Chloride 1,000 ml @ 50 mls/hr Q20H 08/05/16 10:00 08/10/16 22:02 50 MLS/HR Furosemide 40 mg 40 mg 1X ONCE 08/05/16 19:00 08/05/16 19:03 DC 08/05/16 20:48 40 MG Linezolid 300 ml @ 300 mls/hr Q12HR 08/03/16 15:00 08/06/16 10:42 DC 08/06/16 08:42 300 MLS/HR Magnesium Sulfate/ Dextrose 50 ml @ 25 mls/hr PRN DAILY PRN 08/09/16 12:15 Morphine Sulfate 2 mg 2 mg PRN Q4HRS PRN 08/09/16 09:30 08/09/16 22:10 2 MG Ondansetron HCl 4 mg 4 mg PRN Q8HRS PRN 08/03/16 14:00 08/04/16 13:59 DC Piperacillin Sod/ Tazobactam Sod 3.375 gm/Sodium Chloride 50 ml @ 100 mls/hr 1X ONCE 08/03/16 14:00 08/03/16 14:29 DC 08/03/16 15:14 100 MLS/HR Potassium Chloride (KCl Premix 20meq) 50 ml @ 50 mls/hr Q1H 08/09/16 13:00 08/09/16 14:59 DC 08/09/16 14:00 50 MLS/HR Sodium Chloride (Iv Sodium Chloride 0.9% 1000ml Bag) 1,000 ml @ 1,000 mls/hr 1X ONCE 08/03/16 13:15 08/03/16 14:14 DC 08/03/16 14:14 1,000 MLS/HR Sodium Chloride (Normal Saline Flush) 20 ml QSHIFT PRN 08/10/16 17:00 Lab Laboratory Tests Test 08/10/16 14:40 08/10/16 18:30 08/11/16 04:40 Prothrombin Time 16.4SEC (11.7-14.0) Prothromb Time International Ratio 1.4 (0.8-1.1) Potassium Level 4.4mmol/L (3.5-5.1) 4.1mmol/L (3.5-5.1) 4.4mmol/L (3.5-5.1) Sodium Level 139mmol/L (136-145) Chloride Level 109mmol/L (98-107) Carbon Dioxide Level 22mmol/L (21-32) Anion Gap 8 (6-14) Magnesium Level 2.2mg/dL (1.8-2.4) TYRONE HE MD Aug 11, 2016 14:29
[2016-08-11] MEDS ORDERED: IV NORMAL SALINE 500ML BAG 500 ML IV PRN (14:45)
[2016-08-11 15:00] VITALS: BP 127/101
[2016-08-11 19:00] VITALS: BP 145/100
[2016-08-11 23:00] VITALS: BP 139/67
[2016-08-12 03:00] VITALS: BP 139/67
[2016-08-12] MEDS ORDERED: TPN PER PHARMACY MC PRN (06:00)
[2016-08-12 07:00] VITALS: BP 147/78
[2016-08-12 07:00] LABS: CALCIUM 8.2 mg/dL (8.5-10.1); CREATININE 1.3 mg/dL (0.7-1.3); MAGNESIUM 2.2 mg/dL (1.8-2.4); POTASSIUM 4.7 mmol/L (3.5-5.1)
[2016-08-12] MEDS: AA 3%/ELECTROLYTE-TPN SOLN/GLY 1,000 ML IV SCH (07:30)
--- NOTE | 2016-08-12 09:24 | PDOC ---
Infectious Disease Note Subjective Subjective Not as alert today ROS ROS Difficult to ascertain Vital Sign Vital Signs Vital Signs Date Time Temp Pulse Resp B/P Pulse Ox O2 Delivery O2 Flow Rate FiO2 08/12/16 07:00 96.4 92 32 147/78 93 Nasal Cannula 4.0 96.4 Physical Exam PHYSICAL EXAM GENERAL: NAD HEENT: PERRL, OC/OP- dry NECK: Supple, no JVD, no LN LUNGS: Congested HEART: S1S2, no gallop, no murmur ABD: Soft, NT, no organomegaly, no rebound EXT: No edema, no cyanosis MANGLE TENDER CLOTH: Less responsive SKIN: No rash IV: PICC LUE Labs Lab Laboratory Tests Test 08/11/16 14:45 08/11/16 18:00 08/12/16 06:15 Potassium Level 4.5mmol/L (3.5-5.1) 4.7mmol/L (3.5-5.1) 4.7mmol/L (3.5-5.1) Sodium Level 136mmol/L (136-145) Chloride Level 106mmol/L (98-107) Carbon Dioxide Level 19mmol/L (21-32) Anion Gap 11 (6-14) Blood Urea Nitrogen 60mg/dL (8-26) Creatinine 1.3mg/dL (0.7-1.3) Estimated GFR (Cockcroft-Gault) 52.0 Glucose Level 94mg/dL (70-99) Calcium Level 8.2mg/dL (8.5-10.1) Magnesium Level 2.2mg/dL (1.8-2.4) Objective Assessment MSSA sepsis 08/03. repeat 08/07 neg. TTE - neg valves. Trace loculated pericardial effusion EF 25 % Encephalopathy today with chest congestion Fever. better CRISTIAN Dehydration UTI. yeast MRSA nares positive Plan Plan of Care Await Dr. Noble eval Await Palliative eval for goals of care Cont cefazolin increase to q 8 will need until 5/12 min unless goes palliative F/u repeat BC neg so far supportive care Overall poor prognosis IRAIS PLATA MD Aug 12, 2016 09:24
--- NOTE | 2016-08-12 10:00 | PDOC2 ---
PALLIATIVE CARE Palliative Care Note Palliative Care Consult requested by Dr. Noble to address goals of care/PEG Diagnosis: MSSA sepsis 08/03. repeat 08/07 neg. TTE - neg valves. Trace loculated pericardial effusion EF 25 % Encephalopathy CRISTIAN Dehydration UTI. yeast MRSA nares positive Patient unresponsive to verbal stimuli. Restless. Lungs: Rhonchi bilaterally. IV 125/hours. Patient has failed swallow test. Have attempted to reach daughter Alanna several times. Message to return call. Code Status; DNR/DNI. Will continue to try to reach family. MEL SAUER Aug 12, 2016 10:00
[2016-08-12 11:00] VITALS: BP 108/87
--- NOTE | 2016-08-12 13:55 | PDOC2 ---
PALLIATIVE CARE Palliative Care Note Palliative Care Met with librado Raymond. Reviewed medical condition. Stated he had already discussed feeding tube option with his mother and sister and they have declined feeding tube for patient. Discussed option of pleasure feeding and importance of oral hygiene for comfort. Mandi stated he sees his father declining and would like to focus on his comfort. Hospice was discussed. He has no preference of agency. Mandi would like patient transferred back to [facility] with comfort care. 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 Patient is spiritual, did not attend temple but would appreciate general merchandise manager support. Discussed Code Status: DNR/DNI. Outside the Hospital form completed. Plan: No PEG Usp with Hospice--no preference of agency. Mandi Ann son/ [phone] Spoke with Mandi RN and Akua JAQUEZ to assist with discharge plan. 1530 Informed by staff patient . Attempted to notify son Mandi and daughter Alanna. 1730 Mandi and Alanna here and are aware of their father's . MEL SAUER Aug 12, 2016 13:55
--- NOTE | 2016-08-12 14:48 | PDOC ---
GENERAL General: vss and afebrile. awake but not conversant this am. palliative care consult to help drive care this am. MSSA bacteremia with plans for antibiotics per ID. difficult situation. labs all improving. Problems: VITAL SIGNS Vital Signs: Vital Signs Date Time Temp Pulse Resp B/P Pulse Ox O2 Delivery O2 Flow Rate FiO2 08/12/16 11:00 96.6 69 36 108/87 93 Nasal Cannula 4.0 96.6 I & O I & O Intake and Output 08/12/16 07:00 Intake Total 0 ml Output Total 850 ml Balance -850 ml Intake Oral 0 ml Output Urine Total 850 ml ALLERGIES Allergies: Allergies Coded Allergies Type Severity Reaction Last Updated Verified I S O L A T I O N *CONTACT* Allergy Unknown 08/04/16 Yes No Known Medication Allergies Allergy Unknown 08/04/16 Yes MEDS Medications: Current Medications Medications (Trade) Dose Ordered Sig/Sammy Start Time Stop Time Status Last Admin Dose Admin Albuterol Sulfate (Ventolin Neb Soln) 2.5 mg PRN Q4HRS PRN 08/05/16 15:00 08/12/16 06:47 2.5 MG Amino Acids/ Glycerin/ Electrolytes 1,000 ml @ 125 mls/hr Q8H 08/06/16 12:30 08/12/16 21:59 08/11/16 15:30 125 MLS/HR Amino Acids/ Glycerin/ Electrolytes (Procalamine) 1,000 ml @ 80 mls/hr [id number] 08/05/16 12:45 08/05/16 19:00 DC Cefazolin Sodium 1 gm/Sodium Chloride 50 ml @ 100 mls/hr Q12HR 08/06/16 21:00 08/09/16 07:49 DC 08/08/16 19:50 100 MLS/HR Cefazolin Sodium/ Sodium Chloride (Ancef/Iv Sodium Chloride 0.9% 50ml) 50 ml @ 100 mls/hr Q8HRS 08/09/16 14:00 08/12/16 14:15 100 MLS/HR Cefepime HCl 2 gm/ Sodium Chloride 100 ml @ 200 mls/hr 1X ONCE 08/03/16 15:00 08/03/16 15:29 DC 08/03/16 14:34 200 MLS/HR Clonidine HCl (Catapres Tts-1) 1 patch WEEKLY 08/11/16 12:00 08/11/16 15:04 1 PATCH Dextrose/Sodium Chloride 1,000 ml @ 50 mls/hr Q20H 08/05/16 10:00 08/11/16 14:31 DC 08/10/16 22:02 50 MLS/HR Furosemide 40 mg 40 mg 1X ONCE 08/05/16 19:00 08/05/16 19:03 DC 08/05/16 20:48 40 MG Info 1 each 1 each PRN DAILY PRN 08/12/16 06:00 08/12/16 14:03 1 EACH Linezolid 300 ml @ 300 mls/hr Q12HR 08/03/16 15:00 08/06/16 10:42 DC 08/06/16 08:42 300 MLS/HR Magnesium Sulfate/ Dextrose 50 ml @ 25 mls/hr PRN DAILY PRN 08/09/16 12:15 Morphine Sulfate 2 mg 2 mg PRN Q4HRS PRN 08/09/16 09:30 08/09/16 22:10 2 MG Ondansetron HCl 4 mg 4 mg PRN Q8HRS PRN 08/03/16 14:00 08/04/16 13:59 DC Piperacillin Sod/ Tazobactam Sod 3.375 gm/Sodium Chloride 50 ml @ 100 mls/hr 1X ONCE 08/03/16 14:00 08/03/16 14:29 DC 08/03/16 15:14 100 MLS/HR Potassium Chloride (KCl Premix 20meq) 50 ml @ 50 mls/hr Q1H 08/09/16 13:00 08/09/16 14:59 DC 08/09/16 14:00 50 MLS/HR Sodium Chloride (Iv Sodium Chloride 0.9% 1000ml Bag) 1,000 ml @ 1,000 mls/hr 1X ONCE 08/03/16 13:15 08/03/16 14:14 DC 08/03/16 14:14 1,000 MLS/HR Sodium Chloride (Normal Saline Flush) 20 ml QSHIFT PRN 08/10/16 17:00 Sodium Chloride 90 meq/Potassium Chloride 40 meq/ Potassium Phosphate 13.6 mmol/Magnesium Sulfate 10 meq/ Calcium Gluconate 6 meq/ Multivitamins 10 ml/Chromium/ Copper/Manganese/ Seleni/Zn 1 ml/ Total Parenteral Nutrition/Amino Acids/Dextrose/ Fat Emulsion Intravenous 1,080 ml @ 45 mls/hr TPN CONT 08/12/16 22:00 08/13/16 21:59 Sodium Phosphate/ Dextrose 255 ml @ 63.75 mls/ hr 1X ONCE 08/12/16 15:00 08/12/16 18:59 LAB Lab: Laboratory Tests Test 08/11/16 18:00 08/12/16 06:15 Potassium Level 4.7mmol/L (3.5-5.1) 4.7mmol/L (3.5-5.1) Sodium Level 136mmol/L (136-145) Chloride Level 106mmol/L (98-107) Carbon Dioxide Level 19mmol/L (21-32) Anion Gap 11 (6-14) Blood Urea Nitrogen 60mg/dL (8-26) Creatinine 1.3mg/dL (0.7-1.3) Estimated GFR (Cockcroft-Gault) 52.0 Glucose Level 94mg/dL (70-99) Calcium Level 8.2mg/dL (8.5-10.1) Phosphorus Level 2.5mg/dL (2.6-4.7) Magnesium Level 2.2mg/dL (1.8-2.4) Nutrition Consultation Dietary Evaluation: Recommendations by RD: PPN/TPN Comments: continue PPN for short-term nutrition needs Expected Outcomes/Goals: comfort care Malnutrition Findings: Food and Nutrition Intake (Mod: <75% est energy req 7days Body Fat Depletion (Non Severe: Mild Depletion Weight Status: Underweight RADAMES GUZMAN MD Aug 12, 2016 14:48
[2016-08-12] MEDS ORDERED: SODIUM PHOSPHATE 15 MMOL in IV DEXTROSE 5% 250 ML IV ONE (15:00)
[2016-08-12] MEDS ORDERED: [UNRECOGNIZED DRUG - OTHER] IV SCH ×10 (22:00)
[2016-08-12] MEDS ORDERED: DEXTROSE 70% IV SCH ×10 (22:00)
[2016-08-12] MEDS ORDERED: TOTAL PARENTERAL NUTRITION IV SCH ×10 (22:00)
[2016-08-12] MEDS ORDERED: AMINO ACIDS IV SCH ×10 (22:00)
== END 2016-08-12 15:35 | disposition expired | DRG 871 ==
LOC: ER 12:26 → 6 SOUTH 13:01
PROVIDERS: ADMIT Family Medicine; ATTEND Family Medicine
PROC: 02HV33Z Insertion of Infusion Device into Superior Vena Cava, Percutaneous Approach (ICD-10-PCS; principal; 2016-08-09)
DX: A41.01 Sepsis due to Methicillin susceptible Staphylococcus aureus (principal); J96.00 Acute respiratory failure, unspecified whether with hypoxia or hypercapnia; G93.40 Encephalopathy, unspecified; N17.9 Acute kidney failure, unspecified; N39.0 Urinary tract infection, site not specified; E87.0 Hyperosmolality and hypernatremia; I13.0 Hypertensive heart and chronic kidney disease with heart failure and stage 1 through stage 4 chronic kidney disease, or unspecified chronic kidney disease; N18.3 Chronic kidney disease, stage 3 (moderate); Z51.5 Encounter for palliative care; E03.9 Hypothyroidism, unspecified; E78.5 Hyperlipidemia, unspecified; E87.6 Hypokalemia; F03.90 Unspecified dementia, unspecified severity, without behavioral disturbance, psychotic disturbance, mood disturbance, and anxiety; I48.91 Unspecified atrial fibrillation; I50.9 Heart failure, unspecified; I27.2 Other secondary pulmonary hypertension; R62.7 Adult failure to thrive; Z66 Do not resuscitate; E86.0 Dehydration; E78.00 Pure hypercholesterolemia, unspecified; K59.00 Constipation, unspecified; Z86.73 Personal history of transient ischemic attack (TIA), and cerebral infarction without residual deficits
CPT/HCPCS: 36415; 36569; 36600; 51702; 70450; 71010; 80048; 80051; 80053; 81001; 82533; 82805; 82947; 83605; 83735; 84100; 84132; 84484; 85007; 85018; 85027; 85610; 87040; 87086; 87205; 87641; 93005; 93306; 93971; 94640; 96365; 96367; J0690; J0692; J1940; J2020; J2270; J2543; J3480; J7030; 92526; 92610; 99285-25